=== PATIENT | male | born 1930 | race Two or more races ===

== ENCOUNTER → 2016-11-24 | Outpatient (CLI) | payer MEDICARE, BC ==
[2016-11-24 08:51] LABS: Basophils # (A) 0.1 k/uL (0-0.2); Basophils % (A) 1 %; CH 31.1; CHCM 32.1; Eosinophils # (A) 0.2 k/uL (0-0.7); Eosinophils % (A) 3 %; HCT 45.8 % (39.0-53.0); HGB 14.7 gm/dL (13.0-17.5); Luc # (Auto) 0.18; Luc % (Auto) 2; Lymphocytes # (A) 2.2 k/uL (1.0-4.8); Lymphocytes % (A) 29 %; MCH 31.3 pg (25.0-35.0); MCHC 32.2 g/dL (31.0-37.0); MCV 97.4 fL (80.0-100.0); Mean Platelet Volume 9.9; Monocytes # (A) 0.6 k/uL (0-1.0); Monocytes % (A) 8 %; Neutrophils # (A) 4.2 k/uL (1.3-7.7); Neutrophils % (A) 57 %; RBC 4.71 m/uL (4.30-5.90); RDW 14.1 % (11.5-15.5); WBC 7.4 k/uL (3.8-10.6); WBC (Perox) 7.59
[2016-11-24 09:42] LABS: Erythrocyte Sedimentation Rate 7 mm/hr (0-15)
[2016-11-24 10:18] LABS: ALT 30 U/L (21-72); AST 23 U/L (17-59); Alkaline Phosphatase 83 U/L (38-126); Anion Gap 9 mmol/L; Blood Urea Nitrogen 27 mg/dL (9-20); C Reactive Protein <5.0 mg/L (<10.0); Calcium 9.4 mg/dL (8.4-10.2); Carbon Dioxide 27 mmol/L (22-30); Chloride 106 mmol/L (98-107); Cholesterol 192 mg/dL (<200); Creatine Kinase 70 U/L (55-170); Glucose 92 mg/dL (74-99); HDL Cholesterol 54 mg/dL (40-60); Magnesium 1.7 mg/dL (1.6-2.3); Non-African American GFR(MDRD) 48 (>60 ml/min/1.73 sqM); Phosphorous 3.4 mg/dL (2.5-4.5); Potassium 5.4 mmol/L (3.5-5.1); Sodium 142 mmol/L (137-145); Total Bilirubin 0.6 mg/dL (0.2-1.3); Total Protein 6.8 g/dL (6.3-8.2); Triglycerides 70 mg/dL (<150)
== END | disposition home or self-care (01) ==
LOC: LABWHC1 08:02
PROVIDERS: ATTEND Internal Medicine
DX: E87.8 Other disorders of electrolyte and fluid balance, not elsewhere classified (principal); I10 Essential (primary) hypertension; E05.90 Thyrotoxicosis, unspecified without thyrotoxic crisis or storm; E55.9 Vitamin D deficiency, unspecified
CPT/HCPCS: 36415; 80053; 80061; 82306; 82550; 83735; 84100; 84439; 84443; 85025; 85652; 86140

== ENCOUNTER → 2016-12-05 | Outpatient (CLI) | payer MEDICARE, BC | END | disposition home or self-care (01) | LOC: LABWHC1 16:19 | PROVIDERS: ATTEND Internal Medicine | DX: E87.5 Hyperkalemia (principal) | CPT/HCPCS: 36415; 84132 ==

== ENCOUNTER → 2018-04-11 | Outpatient (CLI) | payer MEDICARE, BC ==
[2018-04-11 07:52] LABS: Basophils # (A) 0.1 k/uL (0-0.2); Basophils % (A) 1 %; Eosinophils # (A) 0.2 k/uL (0-0.7); Eosinophils % (A) 3 %; HCT 49.8 % (39.0-53.0); HGB 16.3 gm/dL (13.0-17.5); Lymphocytes % (A) 36 %; MCH 32.7 pg (25.0-35.0); MCHC 32.6 g/dL (31.0-37.0); MCV 100.1 fL (80.0-100.0); Mean Platelet Volume 9.4; Monocytes # (A) 0.4 k/uL (0-1.0); Monocytes % (A) 7 %; Neutrophils # (A) 2.8 k/uL (1.3-7.7); Neutrophils % (A) 50 %; Platelet Count 106 k/uL (150-450); RBC 4.98 m/uL (4.30-5.90); RDW 12.7 % (11.5-15.5); WBC 5.6 k/uL (3.8-10.6)
[2018-04-11 08:52] LABS: ALT 30 U/L (21-72); AST 30 U/L (17-59); Albumin 4.2 g/dL (3.5-5.0); Alkaline Phosphatase 69 U/L (38-126); Anion Gap 12 mmol/L; Blood Urea Nitrogen 23 mg/dL (9-20); C Reactive Protein <5.0 mg/L (<10.0); Calcium 9.3 mg/dL (8.4-10.2); Carbon Dioxide 28 mmol/L (22-30); Chloride 100 mmol/L (98-107); Cholesterol 217 mg/dL (<200); Creatine Kinase 111 U/L (55-170); Glucose 91 mg/dL (74-99); HDL Cholesterol 74 mg/dL (40-60); LDL Cholesterol,Calculated 129 mg/dL (0-99); Magnesium 1.6 mg/dL (1.6-2.3); Phosphorus 3.1 mg/dL (2.5-4.5); Sodium 140 mmol/L (137-145); Total Bilirubin 0.8 mg/dL (0.2-1.3); Total Protein 7.2 g/dL (6.3-8.2); Triglycerides 70 mg/dL (<150)
[2018-04-11 08:55] LABS: Potassium 4.6 mmol/L (3.5-5.1)
[2018-04-11 09:25] LABS: Erythrocyte Sedimentation Rate 2 mm/hr (0-15)
[2018-04-11 18:10] LABS: Parathyroid Hormone Intact 71.2 pg/mL (14.0-72.0)
[2018-04-11 18:12] LABS: Anti-DNA, DS unit <1.0 IU/mL; DNA Double-Stranded NEGATIVE (NEGATIVE)
[2018-04-12 13:40] LABS: Smooth Muscle Antibody 9 UNITS (<20)
[2018-04-12 13:54] LABS: C-ANCA <1:20 Titer (<1:20); P-ANCA <1:20 Titer (<1:20)
[2018-04-12 19:55] LABS: Folate, Serum 13.9 ng/mL
== END | disposition home or self-care (01) ==
LOC: LABWHC1 07:26
PROVIDERS: ATTEND Internal Medicine
DX: E21.3 Hyperparathyroidism, unspecified (principal); E87.8 Other disorders of electrolyte and fluid balance, not elsewhere classified; D64.9 Anemia, unspecified; I82.409 Acute embolism and thrombosis of unspecified deep veins of unspecified lower extremity; M35.9 Systemic involvement of connective tissue, unspecified
CPT/HCPCS: 36415; 80053; 80061; 82306; 82550; 82607; 82746; 83516; 83735; 83970; 84100; 85025; 85379; 85652; 86038; 86140; 86225; 86255

== ENCOUNTER → 2018-04-17 | Outpatient (CLI) | payer MEDICARE, BC ==
--- NOTE | 2018-04-17 18:28 | US ---
EXAMINATION TYPE: US venous doppler duplex LE BI DATE OF EXAM: 04/17/2018 6:07 PM COMPARISON: NONE CLINICAL HISTORY: M79.661 Rt low leg pain,R06.02 Shortness of breath. Right leg pain SIDE PERFORMED: Right TECHNIQUE: The lower extremity deep venous system is examined utilizing real time linear array sonog lucio with graded compression, doppler sonography and color-flow sonography. VESSELS IMAGED: External Iliac Vein (EIV) Common Femoral Vein Deep Femoral Vein Greater Saphenous Vein * Femoral Vein Popliteal Vein Small Saphenous Vein * Proximal Calf Veins (* superficial vessels) Right Leg: Negative for DVT No evidence of DVT right leg. IMPRESSION: 1. Right lower extremity ultrasound negative for deep venous thrombosis
--- NOTE | 2018-04-18 08:15 | CT ---
EXAMINATION TYPE: CT chest wo con DATE OF EXAM: 04/17/2018 COMPARISON: Chest radiograph dated 08/07/2016 HISTORY: Shortness of breath, abnormal cxr at an outside institution. CT DLP: 127.7 mGycm. Automated Exposure Control for Dose Reduction was Utilized. TECHNIQUE: CT scan of the thorax is performed without IV contrast. FINDINGS: LUNGS: Subpleural reticulation is seen throughout the lungs more pronounced on the right than the lef t. Very mild lower lobe bronchiectasis is noted. Biapical pleural parenchymal scarring is mild. The l ungs are grossly clear, there is no concerning parenchymal mass or nodule identified. There is no p leural effusion or pneumothorax seen. The tracheobronchial tree is patent. MEDIASTINUM: Ascending thoracic aorta is enlarged measuring 4.3 cm on coronal series 6 image 26. Desc ending thoracic aorta is tortuous but within normal limits measuring 3.0 cm. Moderate atherosclerosis is seen of the thoracic aorta. Main pulmonary artery is also within normal limits. Severe three-vess el coronary artery calcifications are seen. Prominent 1.2 cm short axis precarinal lymph node is note d. Lack of IV contrast is noted to limit evaluation for mediastinal and especially hilar adenopathy. No axillary adenopathy is seen. No cardiomegaly or pericardial effusion is seen. OTHER: There is minimal bilateral overall symmetric retroareolar gynecomastia moderate multilevel deg enerative changes of the thoracic spine are noted. IMPRESSION: 1. Ascending thoracic aortic aneurysm (4.3 cm). Surveillance is recommended. 2. Subpleural reticulation throughout the lungs and may represent atelectasis, can be seen physiologi [place] in aging independent of smoking, or may represent early fibrosis. No focal consolidation or pul monary mass. 3. Solitary prominent mediastinal lymph node, low suspicion for malignancy. This may be reactive.
== END | disposition home or self-care (01) ==
LOC: RADUSMAIN 17:28
PROVIDERS: ATTEND Internal Medicine
DX: I71.2 Thoracic aortic aneurysm, without rupture (principal); M79.604 Pain in right leg; Z88.0 Allergy status to penicillin
CPT/HCPCS: 71250; 93970

== ENCOUNTER 2018-10-19 10:45 | Emergency (ER) | payer MEDICARE, BC ==
[2018-10-19 10:49] VITALS: RESP 18
[2018-10-19] MEDS ORDERED: ONDANSETRON 4 MG/2 ML VIAL IVP STA (11:08)
[2018-10-19] MEDS ORDERED: SODIUM CHLORIDE 0.9% 1,000 ML IV STA (11:08)
--- NOTE | 2018-10-19 11:20 | ED ---
Nausea/Vomiting/Diarrhea HPI - General Chief complaint: Nausea/Vomiting/Diarrhea Stated complaint: diarrhea Time Seen by Provider: 10/19/18 11:08 Source: patient, RN notes reviewed, old records reviewed Mode of arrival: ambulatory Limitations: no limitations - History of Present Illness Initial comments: This is a 80-year-old male the ER for evasive nausea vomiting diarrhea. No recent travel history no known sick contacts, no family members with similar complaints. No fevers. Patient states his symptoms are much improved currently he was having some difficulty with urination secondary dehydration. Otherwise patient denies any significant complaints of fever, no prior surgical history MD complaint: nausea, vomiting -: days(s) (2) Description of Vomiting: food contents, watery Description of Diarrhea: water Associated Abdominal Pain: Yes Location: diffuse Severity: mild Severity scale (1-10): 1 Quality: cramping, aching Consistency: constant Improves with: none Worsens with: eating, movement Context: other (unknown) Associated Symptoms: nausea/vomiting, weakness - Related Data Home Medications Medication Instructions Recorded Confirmed Metoprolol Tartrate [Lopressor] 12.5 mg PO Q48H 10/19/18 10/19/18 Previous Rx's Medication Instructions Recorded Flecainide [Tambocor] 50 mg PO Q12HR #60 tab 07/26/16 Allergies Allergy/AdvReac Type Severity Reaction Status Date / Time Penicillins Allergy Rash/Hives Verified 10/19/18 11:01 apixaban [From Eliquis] AdvReac WEAKNESS Verified 10/19/18 11:01 Review of Systems ROS Statement: Those systems with pertinent positive or pertinent negative responses have been documented in the HPI. ROS Other: All systems not noted in ROS Statement are negative. Past Medical History Past Medical History: Atrial Fibrillation, Hypertension, Renal Disease Additional Past Medical History / Comment(s): MALARIA WHEN IN [place] History of Any Multi-Drug Resistant Organisms: None Reported Past Surgical History: Hernia Repair Additional Past Surgical History / Comment(s): lt hip surgery,ing hernia repair , rt arm sx Additional Past Anesthesia/Blood Transfusion Reaction / Comment(s): no past blood transfusion Past Psychological History: No Psychological Hx Reported Smoking Status: Never smoker Past Alcohol Use History: None Reported Past Drug Use History: None Reported - Past Family History Father Family Medical History: Myocardial Infarction ([place]) Mother Family Medical History: No Reported History General Exam Limitations: no limitations General appearance: alert, in no apparent distress Head exam: Present: atraumatic, normocephalic, normal inspection Eye exam: Present: normal appearance, PERRL, EOMI. Absent: scleral icterus, conjunctival injection, periorbital swelling ENT exam: Present: normal exam, mucous membranes moist Neck exam: Present: normal inspection. Absent: tenderness, meningismus, lymphadenopathy Respiratory exam: Present: normal lung sounds bilaterally. Absent: respiratory distress, wheezes, rales, rhonchi, stridor Cardiovascular Exam: Present: regular rate, normal rhythm, normal heart sounds. Absent: systolic murmur, diastolic murmur, rubs, gallop, clicks GI/Abdominal exam: Present: soft, normal bowel sounds. Absent: distended, tenderness, guarding, rebound, rigid Extremities exam: Present: normal inspection, full ROM, normal capillary refill. Absent: tenderness, pedal edema, joint swelling, calf tenderness Back exam: Present: normal inspection Neurological exam: Present: alert, oriented X3, CN II-XII intact Psychiatric exam: Present: normal affect, normal mood Skin exam: Present: warm, dry, intact, normal color. Absent: rash Course Vital Signs 10/19/18 10:47 Temperature 97.8 F Pulse Rate 91 Respiratory 18 Rate Blood Pressure 147/97 O2 Sat by Pulse 99 Oximetry Medical Decision Making - Medical Decision Making 88 male the ER for evasive nausea vomiting diarrhea, patient without significant symptoms nausea vomiting or diarrhea here in the ER, x-ray negative for any sort of obstruction no abdominal pain. Mild dehydration, patient given adequate fluid here in the ER will be discharged home - Lab Data Result diagrams: 10/19/18 11:37 10/19/18 11:37 Lab Results 10/19/18 10/19/18 10/19/18 Range/Units 11:37 11:37 11:37 WBC 10.3 (3.8-10.6) k/uL RBC 5.17 (4.30-5.90) m/uL Hgb 16.6 (13.0-17.5) gm/dL Hct 51.3 (39.0-53.0) % MCV 99.3 (80.0-100.0) fL MCH 32.0 (25.0-35.0) pg MCHC 32.2 (31.0-37.0) g/dL RDW 12.6 (11.5-15.5) % Plt Count 94 L (150-450) k/uL Neutrophils % 71 % Lymphocytes % 19 % Monocytes % 7 % Eosinophils % 1 % Basophils % 0 % Neutrophils # 7.3 (1.3-7.7) k/uL Lymphocytes # 1.9 (1.0-4.8) k/uL Monocytes # 0.7 (0-1.0) k/uL Eosinophils # 0.1 (0-0.7) k/uL Basophils # 0.0 (0-0.2) k/uL Manual Slide Review Performed RBC Morphology Normal Sodium 138 (137-145) mmol/L Potassium 4.8 (3.5-5.1) mmol/L Chloride 107 (98-107) mmol/L Carbon Dioxide 20 L (22-30) mmol/L Anion Gap 11 mmol/L BUN 18 (9-20) mg/dL Creatinine 1.43 H (0.66-1.25) mg/dL Est GFR (CKD-EPI)AfAm 51 (>60 ml/min/1.73 sqM) Est GFR (CKD-EPI)NonAf 44 (>60 ml/min/1.73 sqM) Glucose 95 (74-99) mg/dL Calcium 9.4 (8.4-10.2) mg/dL Phosphorus 3.3 (2.5-4.5) mg/dL Magnesium 1.7 (1.6-2.3) mg/dL Total Bilirubin 1.2 (0.2-1.3) mg/dL AST 55 (17-59) U/L ALT 10 L (21-72) U/L Alkaline Phosphatase 80 (38-126) U/L Total Creatine Kinase 252 H (55-170) U/L CK-MB (CK-2) 2.6 H (0.0-2.4) ng/mL CK-MB (CK-2) Rel Index 1.0 Troponin I <0.012 (0.000-0.034) ng/mL Total Protein 7.8 (6.3-8.2) g/dL Albumin 4.1 (3.5-5.0) g/dL - EKG Data -: EKG Interpreted by Me (EKG shows sinus rhythm rate of 76, KS 186, QRS 96, QTc 438) - Radiology Data Radiology results: report reviewed (X-ray abdominal series and chest shows mild fecal retention negative for significant acute disease), image reviewed Disposition Clinical Impression: Gastroenteritis, Dehydration Disposition: HOME SELF-CARE Condition: Good Instructions: Acute Nausea and Vomiting (ED), Acute Diarrhea (ED) Is patient prescribed a controlled substance at d/c from ED?: No Referrals: Leon Scott MD [Primary Care Provider] - 1-2 days
[2018-10-19 12:15] LABS: Basophils % (A) 0 %; Eosinophils # (A) 0.1 k/uL (0-0.7); Eosinophils % (A) 1 %; HCT 51.3 % (39.0-53.0); HGB 16.6 gm/dL (13.0-17.5); Lymphocytes # (A) 1.9 k/uL (1.0-4.8); Lymphocytes % (A) 19 %; MCHC 32.2 g/dL (31.0-37.0); MCV 99.3 fL (80.0-100.0); Mean Platelet Volume 9.8; Monocytes # (A) 0.7 k/uL (0-1.0); Monocytes % (A) 7 %; Neutrophils # (A) 7.3 k/uL (1.3-7.7); Neutrophils % (A) 71 %; RBC 5.17 m/uL (4.30-5.90); RDW 12.6 % (11.5-15.5); WBC 10.3 k/uL (3.8-10.6)
[2018-10-19 12:17] LABS: Creatine Kinase 252 U/L (55-170)
[2018-10-19 12:27] LABS: Albumin 4.1 g/dL (3.5-5.0); Calcium 9.4 mg/dL (8.4-10.2); Magnesium 1.7 mg/dL (1.6-2.3); Phosphorus 3.3 mg/dL (2.5-4.5); Total Bilirubin 1.2 mg/dL (0.2-1.3); Total Protein 7.8 g/dL (6.3-8.2)
[2018-10-19 12:30] LABS: Potassium 4.8 mmol/L (3.5-5.1)
[2018-10-19 12:31] LABS: Creatine Kinase MB 2.6 ng/mL (0.0-2.4); Platelet Count 94 k/uL (150-450); Troponin I <0.012 ng/mL (0.000-0.034)
--- NOTE | 2018-10-19 12:41 | XR ---
EXAMINATION TYPE: XR abdomen acute w cxr DATE OF EXAM: 10/19/2018 COMPARISON: None HISTORY: Abdominal cramping TECHNIQUE: Acute abdominal series performed with a frontal chest upright and supine views of the abdo men. FINDINGS: Nonspecific bowel gas is present. Moderate fecal debris is within the colon to the level th e rectum. Psoas margins are normal. Organomegaly is not present. No free air is evident. No suspicious differential air-fluid levels are present. Organomegaly is not present. Scoliosis is within the thoracolumbar spine. 2 surgical screws are within the left hip. No free air is under the diaphragm. Heart size is normal. Lung [place] are clear. IMPRESSION: 1. Moderate fecal retention. 2. Acute abdominal series is otherwise unremarkable.
[2018-10-19] MEDS ORDERED: GLYCERIN ADULT SUPPOSITORY 1 EACH RECTAL STA (13:01)
[2018-10-19] MEDS ORDERED: DICYCLOMINE 10 MG/ML 2 ML AMP IM STA (13:01)
[2018-10-19] MEDS ORDERED: SENNOSIDES-DOCUSATE SODIUM 1 EACH TAB PO STA (13:01)
[2018-10-19 14:13] VITALS: BP 136/86; PULSE 86; TEMP 97.3
[2018-10-19] MEDS ORDERED: DICYCLOMINE 10 MG CAP PO STA (14:17)
== END 2018-10-19 14:29 | disposition home or self-care (01) ==
LOC: EC 10:45
DX: K52.9 Noninfective gastroenteritis and colitis, unspecified (principal); E86.0 Dehydration; I48.91 Unspecified atrial fibrillation; I10 Essential (primary) hypertension; Z79.899 Other long term (current) drug therapy; Z88.0 Allergy status to penicillin; Z88.8 Allergy status to other drugs, medicaments and biological substances; Z53.8 Procedure and treatment not carried out for other reasons; Z53.29 Procedure and treatment not carried out because of patient's decision for other reasons
CPT/HCPCS: 36415; 74022; 80053; 82550; 82553; 83735; 84100; 84484; 85025; 93005; 96360; 96361; 99284

== ENCOUNTER 2018-10-21 19:51 | Inpatient (IN) | payer MEDICARE, BC ==
[2018-10-21] MEDS ORDERED: ACETAMINOPHEN TAB 325 MG TAB PO STA (20:36)
--- NOTE | 2018-10-21 20:43 | ED ---
General Adult HPI - General Source: patient, family, EMS, RN notes reviewed Mode of arrival: EMS Limitations: no limitations <Stewart Scott - Last Filed: 10/21/18 20:57> <Parmjit Coyne - Last Filed: 10/21/18 23:13> - General Chief complaint: Back Pain/Injury Stated complaint: weakness Time Seen by Provider: 10/21/18 20:09 - History of Present Illness Initial comments: Patient is a pleasant 88-year-old male presenting to the emergency department of fever. Patient was in the emergency department recently. Patient had constipation at that time followed by several episodes of diarrhea. Following that patient did have a large bowel movement that was somewhat normal and has been feeling well for the past couple of days. Today patient has felt fatigued and achy. Patient was found to have fever. Patient did have some discomfort in the sacral region externally that has resolved when he got up to walk. Patient has no discomfort at all at this time. No rash noted. No chest pain or dyspnea. No cough. No upper a story symptoms. No abdominal pain. No dysuria. (Stewart Scott) - Related Data Home Medications Medication Instructions Recorded Confirmed Metoprolol Tartrate [Lopressor] 12.5 mg PO Q48H 10/19/18 10/21/18 Previous Rx's Medication Instructions Recorded Flecainide [Tambocor] 50 mg PO Q12HR #60 tab 07/26/16 Polyethylene Glycol 3350 [Miralax] 17 gm PO DAILY #14 packet 10/19/18 Allergies Allergy/AdvReac Type Severity Reaction Status Date / Time gentamicin Allergy Unknown Verified 10/21/18 20:10 Penicillins Allergy Rash/Hives Verified 10/21/18 20:10 apixaban [From Eliquis] AdvReac WEAKNESS Verified 10/21/18 20:10 sertraline [From Zoloft] AdvReac Hallucinati Verified 10/21/18 20:10 ons Review of Systems ROS Other: All systems not noted in ROS Statement are negative. Constitutional: Reports: fever, chills Eyes: Denies: eye pain ENT: Denies: ear pain Respiratory: Denies: cough, dyspnea Cardiovascular: Denies: chest pain Endocrine: Denies: fatigue Gastrointestinal: Denies: abdominal pain Genitourinary: Denies: urgency, dysuria, frequency Musculoskeletal: Reports: as per HPI Skin: Denies: rash <Stewart Scott - Last Filed: 10/21/18 20:57> ROS Other: All systems not noted in ROS Statement are negative. <Parmjit Coyne Anita - Last Filed: 10/21/18 23:13> ROS Statement: Those systems with pertinent positive or pertinent negative responses have been documented in the HPI. Past Medical History Past Medical History: Atrial Fibrillation, Hypertension, Renal Disease Additional Past Medical History / Comment(s): MALARIA WHEN IN [place] History of Any Multi-Drug Resistant Organisms: None Reported Past Surgical History: Hernia Repair Additional Past Surgical History / Comment(s): lt hip surgery,ing hernia repair , left arm sx Additional Past Anesthesia/Blood Transfusion Reaction / Comment(s): no past blood transfusion Past Psychological History: No Psychological Hx Reported Smoking Status: Never smoker Past Alcohol Use History: None Reported Past Drug Use History: None Reported - Past Family History Father Family Medical History: Myocardial Infarction ([place]) Mother Family Medical History: No Reported History <Stewart Scott - Last Filed: 10/21/18 20:57> General Exam Limitations: no limitations General appearance: alert, in no apparent distress Head exam: Present: atraumatic Eye exam: Present: normal appearance, PERRL ENT exam: Present: normal oropharynx Neck exam: Present: normal inspection. Absent: tenderness, meningismus Respiratory exam: Present: normal lung sounds bilaterally Cardiovascular Exam: Present: regular rate, normal rhythm GI/Abdominal exam: Present: soft. Absent: tenderness Extremities exam: Present: normal inspection Back exam: Present: normal inspection, other (Specifically no tenderness or rash or abscess or abnormality in the patient's area of previous discomfort at the sacrum.). Absent: tenderness, rash noted Neurological exam: Present: alert Psychiatric exam: Present: normal affect, normal mood Skin exam: Present: normal color. Absent: rash <Stewart Scott - Last Filed: 10/21/18 20:57> Vital Signs 10/21/18 10/21/18 10/21/18 19:56 19:57 20:10 Temperature 100.4 F H Pulse Rate 97 79 Respiratory 12 Rate Blood Pressure 154/91 154/91 140/73 O2 Sat by Pulse 97 92 L Oximetry 10/21/18 10/21/18 10/21/18 20:20 20:40 20:50 Temperature Pulse Rate 78 74 75 Respiratory 20 24 20 Rate Blood Pressure 108/64 108/58 103/59 O2 Sat by Pulse Oximetry 10/21/18 10/21/18 10/21/18 21:20 21:30 21:40 Temperature Pulse Rate 78 75 74 Respiratory 18 20 22 Rate Blood Pressure 109/76 109/76 103/60 O2 Sat by Pulse 93 L 95 95 Oximetry 10/21/18 10/21/18 21:50 22:10 Temperature Pulse Rate 74 73 Respiratory 20 15 Rate Blood Pressure 99/58 95/58 O2 Sat by Pulse 95 94 L Oximetry EKG Findings - EKG Comments: EKG Findings:: Normal sinus rhythm 76. [place] 208, for screening AV block. QRS 94. QT 396. QTc 445. Normal axis. RSR V1. T-wave inversion septally. No acute ST change. <Stewart Scott - Last Filed: 10/21/18 20:57> Medical Decision Making - Lab Data Result diagrams: 10/21/18 20:05 <Stewart Scott - Last Filed: 10/21/18 20:57> - Lab Data Result diagrams: 10/21/18 20:05 10/21/18 20:05 <Parmjit Coyne - Last Filed: 10/21/18 23:13> - Medical Decision Making 88-year-old male presenting with sacral pain and fever. Patient's care was signed out at shift change awaiting laboratory studies and imaging. Laboratory studies obtained, patient is elevated white blood cell count 11.9, lactic acid of 3.3. Electrolytes within normal limits. Urinalysis does show 19 white cells. Both blood culture and urine culture are pending. CT is performed which shows colitis in the rectum as well as a nonobstructing left inguinal hernia. Patient's symptoms likely related to colitis. He was started on Levaquin for urine culture results. He will be admitted for IV antibiotics, and IV fluids. Case is discussed with admitting physician Dr. Scott, he will accept admission. Gastroenterology placed on consult. (Parmjit Coyne) - Lab Data Lab Results 10/21/18 10/21/18 10/21/18 Range/Units 20:05 20:05 20:05 WBC 11.9 H (3.8-10.6) k/uL RBC 4.80 (4.30-5.90) m/uL Hgb 15.0 (13.0-17.5) gm/dL Hct 47.5 (39.0-53.0) % MCV 99.0 (80.0-100.0) fL MCH 31.4 (25.0-35.0) pg MCHC 31.7 (31.0-37.0) g/dL RDW 12.6 (11.5-15.5) % Plt Count 110 L (150-450) k/uL Neutrophils % 83 % Lymphocytes % 10 % Monocytes % 5 % Eosinophils % 1 % Basophils % 0 % Neutrophils # 9.9 H (1.3-7.7) k/uL Lymphocytes # 1.2 (1.0-4.8) k/uL Monocytes # 0.6 (0-1.0) k/uL Eosinophils # 0.1 (0-0.7) k/uL Basophils # 0.0 (0-0.2) k/uL PT (9.0-12.0) sec INR (<1.2) APTT (22.0-30.0) sec Sodium 138 (137-145) mmol/L Potassium 4.6 (3.5-5.1) mmol/L Chloride 102 (98-107) mmol/L Carbon Dioxide 24 (22-30) mmol/L Anion Gap 12 mmol/L BUN 20 (9-20) mg/dL Creatinine 1.28 H (0.66-1.25) mg/dL Est GFR (CKD-EPI)AfAm 57 (>60 ml/min/1.73 sqM) Est GFR (CKD-EPI)NonAf 50 (>60 ml/min/1.73 sqM) Glucose 99 (74-99) mg/dL Plasma Lactic Acid Bravo (0.7-2.0) mmol/L Calcium 8.6 (8.4-10.2) mg/dL Total Bilirubin 0.6 (0.2-1.3) mg/dL AST 35 (17-59) U/L ALT 23 (21-72) U/L Alkaline Phosphatase 67 (38-126) U/L Total Creatine Kinase 341 H (55-170) U/L CK-MB (CK-2) 3.1 H (0.0-2.4) ng/mL CK-MB (CK-2) Rel Index 0.9 Troponin I <0.012 (0.000-0.034) ng/mL Total Protein 7.0 (6.3-8.2) g/dL Albumin 3.9 (3.5-5.0) g/dL Urine Color Urine Appearance (Clear) Urine pH (5.0-8.0) Ur Specific [place] (1.001-1.035) Urine Protein (Negative) Urine Glucose (UA) (Negative) Urine Ketones (Negative) Urine Blood (Negative) Urine Nitrite (Negative) Urine Bilirubin (Negative) Urine Urobilinogen (<2.0) mg/dL Ur Leukocyte Esterase (Negative) Urine RBC (0-5) /hpf Urine WBC (0-5) /hpf Urine Mucus (None) /hpf Influenza Type A RNA (Not Detectd) Influenza Type B (PCR) (Not Detectd) 10/21/18 10/21/18 10/21/18 Range/Units 20:05 20:05 20:50 WBC (3.8-10.6) k/uL RBC (4.30-5.90) m/uL Hgb (13.0-17.5) gm/dL Hct (39.0-53.0) % MCV (80.0-100.0) fL MCH (25.0-35.0) pg MCHC (31.0-37.0) g/dL RDW (11.5-15.5) % Plt Count (150-450) k/uL Neutrophils % % Lymphocytes % % Monocytes % % Eosinophils % % Basophils % % Neutrophils # (1.3-7.7) k/uL Lymphocytes # (1.0-4.8) k/uL Monocytes # (0-1.0) k/uL Eosinophils # (0-0.7) k/uL Basophils # (0-0.2) k/uL PT 10.2 (9.0-12.0) sec INR 0.9 (<1.2) APTT 23.4 (22.0-30.0) sec Sodium (137-145) mmol/L Potassium (3.5-5.1) mmol/L Chloride (98-107) mmol/L Carbon Dioxide (22-30) mmol/L Anion Gap mmol/L BUN (9-20) mg/dL Creatinine (0.66-1.25) mg/dL Est GFR (CKD-EPI)AfAm (>60 ml/min/1.73 sqM) Est GFR (CKD-EPI)NonAf (>60 ml/min/1.73 sqM) Glucose (74-99) mg/dL Plasma Lactic Acid Bravo 3.3 H* (0.7-2.0) mmol/L Calcium (8.4-10.2) mg/dL Total Bilirubin (0.2-1.3) mg/dL AST (17-59) U/L ALT (21-72) U/L Alkaline Phosphatase (38-126) U/L Total Creatine Kinase (55-170) U/L CK-MB (CK-2) (0.0-2.4) ng/mL CK-MB (CK-2) Rel Index Troponin I (0.000-0.034) ng/mL Total Protein (6.3-8.2) g/dL Albumin (3.5-5.0) g/dL Urine Color Urine Appearance (Clear) Urine pH (5.0-8.0) Ur Specific [place] (1.001-1.035) Urine Protein (Negative) Urine Glucose (UA) (Negative) Urine Ketones (Negative) Urine Blood (Negative) Urine Nitrite (Negative) Urine Bilirubin (Negative) Urine Urobilinogen (<2.0) mg/dL Ur Leukocyte Esterase (Negative) Urine RBC (0-5) /hpf Urine WBC (0-5) /hpf Urine Mucus (None) /hpf Influenza Type A RNA Not Detected (Not Detectd) Influenza Type B (PCR) Not Detected (Not Detectd) 10/21/18 Range/Units 21:08 WBC (3.8-10.6) k/uL RBC (4.30-5.90) m/uL Hgb (13.0-17.5) gm/dL Hct (39.0-53.0) % MCV (80.0-100.0) fL MCH (25.0-35.0) pg MCHC (31.0-37.0) g/dL RDW (11.5-15.5) % Plt Count (150-450) k/uL Neutrophils % % Lymphocytes % % Monocytes % % Eosinophils % % Basophils % % Neutrophils # (1.3-7.7) k/uL Lymphocytes # (1.0-4.8) k/uL Monocytes # (0-1.0) k/uL Eosinophils # (0-0.7) k/uL Basophils # (0-0.2) k/uL PT (9.0-12.0) sec INR (<1.2) APTT (22.0-30.0) sec Sodium (137-145) mmol/L Potassium (3.5-5.1) mmol/L Chloride (98-107) mmol/L Carbon Dioxide (22-30) mmol/L Anion Gap mmol/L BUN (9-20) mg/dL Creatinine (0.66-1.25) mg/dL Est GFR (CKD-EPI)AfAm (>60 ml/min/1.73 sqM) Est GFR (CKD-EPI)NonAf (>60 ml/min/1.73 sqM) Glucose (74-99) mg/dL Plasma Lactic Acid Bravo (0.7-2.0) mmol/L Calcium (8.4-10.2) mg/dL Total Bilirubin (0.2-1.3) mg/dL AST (17-59) U/L ALT (21-72) U/L Alkaline Phosphatase (38-126) U/L Total Creatine Kinase (55-170) U/L CK-MB (CK-2) (0.0-2.4) ng/mL CK-MB (CK-2) Rel Index Troponin I (0.000-0.034) ng/mL Total Protein (6.3-8.2) g/dL Albumin (3.5-5.0) g/dL Urine Color Yellow Urine Appearance Clear (Clear) Urine pH 5.5 (5.0-8.0) Ur Specific [place] 1.011 (1.001-1.035) Urine Protein Negative (Negative) Urine Glucose (UA) Negative (Negative) Urine Ketones Negative (Negative) Urine Blood Negative (Negative) Urine Nitrite Negative (Negative) Urine Bilirubin Negative (Negative) Urine Urobilinogen <2.0 (<2.0) mg/dL Ur Leukocyte Esterase Small H (Negative) Urine RBC 1 (0-5) /hpf Urine WBC 19 H (0-5) /hpf Urine Mucus Rare H (None) /hpf Influenza Type A RNA (Not Detectd) Influenza Type B (PCR) (Not Detectd) Disposition <Stewart Scott - Last Filed: 10/21/18 20:57> Is patient prescribed a controlled substance at d/c from ED?: No Decision to Admit Reason: Admit from EC Decision Date: 10/21/18 Decision Time: 23:13 <Parmjit Coyne - Last Filed: 10/21/18 23:13> Clinical Impression: Dehydration, Colitis Disposition: ADMITTED IP TO THIS HOSP Condition: Stable Referrals: Leon Scott MD [Primary Care Provider] - 1-2 days
[2018-10-21 20:46] LABS: Basophils % (A) 0 %; Eosinophils # (A) 0.1 k/uL (0-0.7); Eosinophils % (A) 1 %; HCT 47.5 % (39.0-53.0); Lymphocytes # (A) 1.2 k/uL (1.0-4.8); Lymphocytes % (A) 10 %; MCH 31.4 pg (25.0-35.0); MCHC 31.7 g/dL (31.0-37.0); Mean Platelet Volume 9.7; Monocytes # (A) 0.6 k/uL (0-1.0); Monocytes % (A) 5 %; Neutrophils # (A) 9.9 k/uL (1.3-7.7); Neutrophils % (A) 83 %; Platelet Count 110 k/uL (150-450); RDW 12.6 % (11.5-15.5); WBC 11.9 k/uL (3.8-10.6)
[2018-10-21 20:59] LABS: INR 0.9 (<1.2); Partial Thromboplastin Time 23.4 sec (22.0-30.0); Prothrombin Time 10.2 sec (9.0-12.0)
[2018-10-21 21:03] LABS: Albumin 3.9 g/dL (3.5-5.0); Calcium 8.6 mg/dL (8.4-10.2); Potassium 4.6 mmol/L (3.5-5.1); Total Bilirubin 0.6 mg/dL (0.2-1.3)
[2018-10-21 21:06] LABS: Creatine Kinase 341 U/L (55-170)
[2018-10-21] MEDS ORDERED: SODIUM CHLORIDE 0.9% 1,000 ML IV ONE (21:11)
[2018-10-21 21:18] LABS: Creatine Kinase MB 3.1 ng/mL (0.0-2.4); Troponin I <0.012 ng/mL (0.000-0.034)
--- NOTE | 2018-10-21 21:20 | XR ---
EXAMINATION TYPE: XR chest 2V DATE OF EXAM: 10/21/2018 COMPARISON: 08/07/2016 HISTORY: Fever TECHNIQUE: Frontal and lateral views of the chest are obtained. FINDINGS: There is no heart failure nor confluent pneumonic infiltrate. Thoracic aorta is atheromato us and tortuous. Costophrenic angles are clear. Bony thorax appears intact. IMPRESSION: No active cardiopulmonary disease. There is clearing of the pleural fluid and mild pulmo nary congestion compared to old exam.
[2018-10-21 21:32] LABS: Appearance,Urine Clear (Clear); Bilirubin,Urine Negative (Negative); Blood,Urine Negative (Negative); Color,Urine Yellow; Glucose,Urine (UA) Negative (Negative); Ketones,Urine Negative (Negative); Leukocyte Esterase,Urine Small (Negative); Mucus,Urine Rare /hpf; Nitrite,Urine Negative (Negative); PH, Urine 5.5 (5.0-8.0); Protein,Urine Negative (Negative); RBC,Urine 1 /hpf (0-5); Specific Gravity,Urine 1.011 (1.001-1.035); Urobilinogen,Urine <2.0 mg/dL (<2.0); WBC,Urine 19 /hpf (0-5)
[2018-10-21] MEDS ORDERED: LEVOFLOXACIN 500MG-D5W PMX 500 MG in DEXTROSE/WATER 1 100ML.BAG IVPB STA (21:58)
--- NOTE | 2018-10-21 22:43 | CT ---
EXAMINATION TYPE: CT abdomen pelvis w con DATE OF EXAM: 10/21/2018 COMPARISON: None HISTORY: Fever and weakness. CT DLP: 578.6 mGycm Automated exposure control for dose reduction was used. TECHNIQUE: Helical acquisition of images was performed from the lung bases through the pelvis. CONTRAST: Performed without Oral Contrast and with IV Contrast, patient injected with 80ml mL of Isovue 300. FINDINGS: There is subsegmental atelectasis at the lung bases. Heart is enlarged. There is no pericardial effus ion. Liver shows no focal defect. Gallbladder appears normal. Spleen appears normal. There is no panc reatic mass. There is no adrenal mass. There are small bilateral renal cortical cysts. There is no hydronephrosis. There is no retroperitoneal adenopathy. Abdominal aorta is atheromatous. Bladder distends smoothly. There is left side inguinal hernia and scrotal hernia. This contains descending colon and fat. I see no evidence of a bowel obstruction. There is a left hip nailing noted. There is no free fluid in the pelvis. There is mild wall thickening of the rectum. Lumbar vertebra have normal spacing. There is no compression fracture. Posterior elements are intact. Bony pelvis is intact. There is mild thoracolumbar dextroscoliosis. There is no evidence of mesenteric edema or adenopathy. There is no evidence of a bowel obstruction. IMPRESSION: THERE IS WALL THICKENING OF THE RECTUM THAT COULD RELATE TO FOCAL COLITIS. LEFT INGUINAL HERNIA WITHOUT EVIDENCE OF OBSTRUCTION OF THE DESCENDING COLON. PATCHY SUBSEGMENTAL ATELECTASIS AT THE LUNG BASES. CARDIOMEGALY.
[2018-10-21] MEDS ORDERED: ACETAMINOPHEN TAB 325 MG TAB PO PRN (23:08)
[2018-10-21] MEDS ORDERED: SODIUM CHLORIDE 0.9% 500 ML 500 ML IV ONE (23:08)
[2018-10-21] MEDS ORDERED: NALOXONE 0.4 MG/ML 1 ML VIAL IV PRN (23:08)
[2018-10-21] MEDS ORDERED: LEVOFLOXACIN 500MG-D5W PMX 500 MG in DEXTROSE/WATER 1 100ML.BAG IVPB SCH (23:15)
[2018-10-22] MEDS: SODIUM CHLORIDE 0.9% 1,000 ML IV SCH ×2 (07:06→18:34)
[2018-10-22] MEDS: metroNIDAZOLE-NS PMX 500 MG in SALINE 1 100ML.BAG IVPB SCH ×2 (10:17→18:33)
[2018-10-22] MEDS: FLECAINIDE 50 MG TAB PO SCH ×2 (10:17→20:04)
[2018-10-22 10:46] LABS: Albumin 3.1 g/dL (3.5-5.0); Calcium 8.8 mg/dL (8.4-10.2); Magnesium 1.6 mg/dL (1.6-2.3); Potassium 4.5 mmol/L (3.5-5.1); Total Bilirubin 0.8 mg/dL (0.2-1.3); Total Protein 6.1 g/dL (6.3-8.2)
[2018-10-22] MEDS ORDERED: methylPREDNISolone SOD SUCCI 125 MG/2 ML VIAL IV STA (14:53)
--- NOTE | 2018-10-22 15:33 | HP ---
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 DATA: FULL CODE. He is 5 foot 5 inches height. His weight 62.142 kg, BSA 1.68 m2, BMI 22.8 kg/m2. His allergy to GENTAMICIN, PENICILLIN, APIXABAN, SERTRALINE. He has no allergy to cephalosporin. CHIEF COMPLAINT: Patient presented to the emergency room with the underlying abdominal pain, as well as that he felt weak and feverish and chills. 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 After his visit, he went home and he was stable at the time and he had a large bowel movement and he felt comfortable. Yesterday. Monday, 10/21, he went exercise walking in the mall and with his return back, he had a shower, but after the shower, he felt shivering and this shivering did not stop. That was happening around 4:30 pm to 7 pm. Subsequently they called the ambulance, his and took him to the emergency room. In the emergency room and found that his blood pressure was low at the time of presentation and the blood pressure was her his temperature as well was 100.4. blood pressure started as level of 154/91 and subsequently gradually dropped to 108/58 and with instability, his oxygen saturation also went down from 97 to 92. And the patient with this finding and the abdominal pain and shivering underwent CT scan of the abdomen. The CT scan of the abdomen was indicating that he has underlying wall thickening in the rectum and could be focal colitis at the time. With the history of constipation and after that, large frequent bowel movement until he was cleaned up and could be that is irritation. However, the hypotension that occurred subsequently that could be another issue. Found also in the CT scan that he had the left inguinal hernia and without evidence of obstruction of the descending colon. Also, he had a patchy atelectasis in the lung bases with cardiomegaly. In the ER as well, we did a chest x-ray and the chest x-ray was indicating mild pulmonary congestion compared with the old exam. No active pulmonary disease. His EKG showed to be normal sinus rhythm with incomplete right bundle branch block and nonspecific ST wave abnormality with the abnormal EKG and the patient has been on flecainide by Dr. Augustin, the publishing editor, with a history of atrial fibrillation in the past and he has been sinus since he has been taken this medication. He had history of mild hypertension in the past, but he has currently hypotension. He, subsequently, as seen in the emergency room and the impression that presented to them was fever and patient had has a history mentioned above, history of constipation and followed by several diarrhea and large bowel movements. Patient felt fatigued and achy and the pain was in the sacral area and was burning sensation on the anal rectal area. However, he walked and he felt resolved. No chest pain and no cough and no abdominal pain at the time of presentation to the emergency room. Current rest of medication is metoprolol tartrate 12.5 mg p.o. every 48 hours. He is on flecainide, which is Tambocor which is flecainide 50 mg twice a day and he is on polyethylene glycol, MiraLAX, which has been stopped on the admission. He is allergic to GENTAMICIN, PENICILLIN, APIXABAN, and SERTRALINE. PAST MEDICAL HISTORY: Left hip surgery with screw and pins with fracture. The patient , he has 3 daughters. REVIEW OF THE SYSTEM: Essentially negative except constitutional he had a fever and chills. Denied any pain in the eye or the ear. Denied any respiratory symptoms, cough and dyspnea. Denied any cardiovascular symptoms, chest pain or anginal pain. Endocrine was negative, but he felt fatigued and tired and found that he has CPK, the muscle fraction was elevated, which has been subsequently after he was exercising, walking in the mall. Genitourinary, denied any urgency or dysuria or frequency and musculoskeletal, just history of exercising in the mall. Skin, no skin rash. GI, the feeling of pain in the sacral area and perianal area and burning feeling, probably could be related after he had the frequent large bowel movement. The past medical history, he had hernia repair. He had also left hip surgery and he had history of atrial fib, hypertension, and chronic kidney disease, mild; however, today is progressive. He has remote history of malaria and in [place], remote. No psychological history. Never smoked. No alcohol intake. No drug use. FAMILY HISTORY: Father, myocardial infarction. Mother, Raynaud's disease. PHYSICAL EXAMINATION: Patient was conscious, alert, oriented x3 at the time of the examination, his blood pressure is still low in the 93/54 with a mean 67 and subsequently 91/56. His pulse ox was in the 92-93. His pulse rate was 63-65. HEENT: The head was normocephalic, atraumatic. Pupil was reactive and equal. Conjunctivae was pink, sclerae was nonicteric and the oropharynx natural teeth and uvula midline and normal tongue here. Normal hearing and neck was supple. No lymphadenopathy. Trachea midline. No thyromegaly. Chest was clear to auscultation and percussion. No wheezes, no rhonchi. The heart, PMI in the fifth intercostal space and normal S1, S2. No gallop. The abdomen was soft with some epigastric discomfort and lower abdomen discomfort in the abdomen is positive bowel sounds and not tympanitic. EXTREMITIES: No edema, but decreased pulses on both dorsalis pedis and posterior tibial as well as on the femoral and popliteal pulses. The purplish discoloration of the foot and hand with exposure to the cold with the underlying Raynaud's disease. He had also an onychomycosis of the toenails with nail dystrophy bilateral. LABORATORY: On admission indicating lactic acidosis with the lactic acid was 3.3 and; however when we repeat again, it has improved to 0.8. He had his leukocytosis with the WBC is 11.9 and the hemoglobin was normal 15, hematocrit 47. Patient also had thrombocytopenia; however, he has no bleeding tendency with the platelet count 110. His neutrophil was 9.9, which is increased. He has a PT and INR within normal limit and he has chemistry profile on admission and that was indicating normal electrolyte with sodium 138, and carbon dioxide was 24. However, the creatinine is 1.28 and with the subsequent labs indicating that progression of the creatinine with the normal glucose. However, the repeat again his blood sugar was 68. The patient did not eat at that time. The underlying CK was 341 on admission with muscle fraction is 3.1, the CK-MB and that is considered mild post-exercise rhabdo. His troponin was normal less than 0.012 and the total protein 7, albumin 3.9, and his urinalysis was indicating that he had a small leukocyte esterase with white cells is 19, suspicious of pyuria was considered or urinary tract infection including prostatitis. Repeat lab this morning was indicating that the creatinine went up with the estimated glomerular filtration rate for non- for him when he admitted was 50 and now it is 48. We started him back again on the IV fluid, which was discontinued during the night. IMPRESSION: 1. Dehydration. 2. Acute kidney injury on the top of chronic with chronic kidney disease stage III. 3. Underlying mild elevation of creatine kinase considering mild rhabdo. Lactic acidosis could be associated with a 3.3 lactic acid. Peripheral vascular disease with pulses bilaterally decreased. 4. Thickening of the rectum by the CAT scan with the underlying focal colitis and possible proctitis with the symptoms of anal burning. 5. Thrombocytopenia with no active bleeding. 6. History of atrial fibrillation, currently sinus. 7. Incomplete right bundle branch block by the EKG. 8. Underlying left hip arthroplasty. 9. Currently, inguinal hernia by the CT scan; however, nonsymptomatic. PLAN: 1. We are repeating laboratory. 2. Hydration with IV gentle hydration with IV fluids 75 mL/hour normal saline. 3. Monitoring the renal function. 4. Consultation with Dr. Page/Gastroenterology/Dr. Saunders the new gastroenterology and I did discuss it with him personally that he will be seeing him today. The underlying thrombocytopenia and without any active bleeding and will be checking again the laboratory tomorrow and his PT and INR is normal and we will be ambulating him from day 1 with no need for DVT prophylaxis as he always active for ambulation. 5. We will be obtaining bilateral arterial duplex as RANDA, we do not do it in the hospital and we will get the ultrasound of the arterial side. 6. Tomorrow will check also his CPK for a solution of the mild rhabdo. 7. Patient was started in the ER on Levaquin with the history of proctitis and burning inflammation, will be changing the antibiotic to Rocephin as well as Rocephin, and Flagyl until seen by the Gastroenterology and we will wait for the results of the arterial duplex study of the lower extremity. Further treatment depends on the patient's condition. MMODL / IJN: [id number] /
[2018-10-22 18:09] LABS: Anti-DNA, DS unit <1.0 IU/mL; DNA Double-Stranded NEGATIVE (NEGATIVE)
[2018-10-22] MEDS ORDERED: LEVOFLOXACIN 250MG-D5W PMX 250 MG in DEXTROSE/WATER 1 50ML.BAG IVPB SCH (23:15)
[2018-10-23] MEDS: metroNIDAZOLE-NS PMX 500 MG in SALINE 1 100ML.BAG IVPB SCH ×2 (00:10→09:23)
--- NOTE | 2018-10-23 00:29 | P.CONS ---
History of Present Illness - Reason for Consult Consult date: 10/22/18 Proctitis Requesting physician: Leon Scott - Chief Complaint Chills, fatigue - History of Present Illness The patient is a very pleasant 88-year-old male with medical history significant for atrial fibrillation and hypertension who presents to the hospital with complaints of chills and fatigue. Per the patient she was recently seen on in the emergency department after presenting for complaints of constipation. The patient reports that he was very constipated and presented for impaction. The patient subsequently had a bowel movement which was followed by loose stool which is currently resolved. He presented back to the ER for further evaluation after feeling cold, chills and for fatigue. In the emergency department the patient had a computed tomography scan of the abdomen which was significant for wall thickening of the rectum as well as a left inguinal hernia and atelectasis of the lungs. The patient reports that currently his symptoms have resolved. He reports that he does suffer from constipation at baseline and that starting laxative therapy. He denies any abdominal pain. He reports a remote history of a colonoscopy. He denies any rectal or GI bleeding. Hemoglobin and liver enzymes were normal on presentation. Review of Systems REVIEW OF SYSTEMS: CARDIO: Denies any chest pain or palpitations, she does have a known history of atrial fibrillation. PULMONARY: Denies any shortness of breath or wheezing. GENITOURINARY: No dysuria or hematuria. MUSCULOSKELETAL: No weakness reported. SKIN: Denies any new rashes or lesions, jaundice or pallor. PSYCHIATRIC: Denies any depression or anxiety. NEUROLOGY: Denies headache, denies any new focal deficits. EARS: No tinnitus, discharge or new hearing loss. NOSE: No discharge or congestion. EYES: No pain in eyes or change in vision. CONSTITUTIONAL: No recent weight loss. No fever, chills, night sweats. 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 Smoking Status: Never smoker Past Alcohol Use History: None Reported Past Drug Use History: None Reported - Past Family History Father Family Medical History: Myocardial Infarction ([place]) Mother Family Medical History: No Reported History Medications and Allergies Home Medications Medication Instructions Recorded Confirmed Type Flecainide [Tambocor] 50 mg PO Q12HR #60 tab 07/26/16 10/21/18 Rx Metoprolol Tartrate [Lopressor] 12.5 mg PO Q48H 10/19/18 10/21/18 History Polyethylene Glycol 3350 [Miralax] 17 gm PO DAILY #14 packet 10/19/18 10/21/18 Rx Allergies Allergy/AdvReac Type Severity Reaction Status Date / Time gentamicin Allergy Unknown Verified 10/21/18 20:10 Penicillins Allergy Rash/Hives Verified 10/21/18 20:10 apixaban [From Eliquis] AdvReac WEAKNESS Verified 10/21/18 20:10 sertraline [From Zoloft] AdvReac Hallucinati Verified 10/21/18 20:10 ons Physical Exam Vitals: Vital Signs Temp Pulse Pulse Pulse Resp BP BP 10/22/18 20:09 64 10/22/18 20:02 98.0 F 68 12 111/58 10/22/18 16:07 17 10/22/18 15:00 97.9 F 68 16 110/64 10/22/18 07:00 98.4 F 60 17 107/68 10/22/18 02:39 98.0 F 65 14 115/69 10/22/18 02:00 99.4 F 73 104/63 10/22/18 01:40 91/56 10/22/18 01:30 63 19 96/67 10/22/18 01:20 65 6 L 96/67 10/22/18 01:10 64 19 98/60 10/22/18 01:00 63 21 93/54 10/22/18 00:50 64 21 93/54 10/22/18 00:40 66 19 95/58 10/22/18 00:20 65 16 100/62 10/22/18 00:10 67 20 92/55 10/22/18 00:00 69 16 102/60 10/21/18 23:50 74 16 84/56 Pulse Ox 10/22/18 20:09 10/22/18 20:02 99 10/22/18 16:07 10/22/18 15:00 100 10/22/18 07:00 97 10/22/18 02:39 99 10/22/18 02:00 96 10/22/18 01:40 10/22/18 01:30 93 L 10/22/18 01:20 92 L 10/22/18 01:10 92 L 10/22/18 01:00 92 L 10/22/18 00:50 93 L 10/22/18 00:40 94 L 10/22/18 00:20 93 L 10/22/18 00:10 93 L 10/22/18 00:00 93 L 10/21/18 23:50 93 L Intake and Output 10/22/18 10/22/18 10/23/18 14:59 22:59 06:59 Other: # Voids 1 On physical examination, patient appears comfortable in no apparent distress. HEAD: Normocephalic, atraumatic. EYES: No scleral icterus. No conjunctival injection. MOUTH: No lesions, tongue midline. NECK: Trachea midline, no gross abnormalities. CHEST: Clear to auscultation with no wheezing or rhonchi appreciated. HEART: Irregularly irregular. ABDOMEN: Soft. Bowel sounds are positive. No organomegaly. No guarding or rigidity. EXTREMITIES: No pedal edema. SKIN: No rashes, no jaundice. NEUROLOGIC: Alert and oriented x3. No focal deficits. Results CBC & Chem 7: 10/21/18 20:05 10/22/18 09:23 Labs: Abnormal Lab Results - Last 24 Hours (Table) 10/22/18 Range/Units 09:23 Creatinine 1.33 H (0.66-1.25) mg/dL Glucose 68 L (74-99) mg/dL Total Protein 6.1 L (6.3-8.2) g/dL Albumin 3.1 L (3.5-5.0) g/dL Microbiology - Last 24 Hours (Table) 10/21/18 20:05 Blood Culture - Preliminary Blood No Growth after 24 hours 10/21/18 21:08 Urine Culture - Preliminary Urine,Clean Catch CT scan - abdomen: report reviewed (computed tomography scan of the abdomen which was significant for wall thickening of the rectum as well as a left inguinal hernia and atelectasis of the lungs.) Assessment and Plan (1) Colitis Narrative/Plan: Patient with a known history of constipation who was recently seen in the emergency department it is severe ulceration and impaction. He presented back with symptoms of chills and fatigue and was found to have CT findings of rectal wall thickening area he recently had loose bowel movements after presenting with impaction. Currently he is reporting that his symptoms are resolved. Unclear etiology and may represent local changes secondary to constipation and impaction, also consider infectious colitis or other etiology. Current Visit: Yes Status: Acute Code(s): K52.9 - NONINFECTIVE GASTROENTERITIS AND COLITIS, UNSPECIFIED SNOMED Code(s): 79284234 (2) Atrial fibrillation with RVR Current Visit: No Status: Acute Code(s): I48.91 - UNSPECIFIED ATRIAL FIBRILLATION SNOMED Code(s): 760740786151325 Plan: Supportive care Okay for diet Continue short course of antibiotics currently on Rocephin and Flagyl Recommend outpatient follow-up with gastroenterology in consideration for colonoscopic evaluation Recommend bowel regimen at home, have discussed the use of fiber supplementation with Benefiber or the addition of daily MiraLAX Thank you for allowing us to participate in the care of this patient we will continue to follow
[2018-10-23] MEDS: SODIUM CHLORIDE 0.9% 1,000 ML IV SCH (05:18)
[2018-10-23 06:08] LABS: Basophils % (A) 0 %; Eosinophils % (A) 0 %; HCT 44.2 % (39.0-53.0); Lymphocytes # (A) 0.7 k/uL (1.0-4.8); Lymphocytes % (A) 10 %; MCH 30.9 pg (25.0-35.0); MCHC 31.7 g/dL (31.0-37.0); MCV 97.6 fL (80.0-100.0); Mean Platelet Volume 9.4; Monocytes # (A) 0.1 k/uL (0-1.0); Monocytes % (A) 2 %; Neutrophils # (A) 6.2 k/uL (1.3-7.7); Neutrophils % (A) 87 %; Platelet Count 111 k/uL (150-450); RBC 4.53 m/uL (4.30-5.90); RDW 12.4 % (11.5-15.5); WBC 7.2 k/uL (3.8-10.6)
[2018-10-23 06:28] LABS: Calcium 8.6 mg/dL (8.4-10.2); Magnesium 1.5 mg/dL (1.6-2.3); Potassium 4.7 mmol/L (3.5-5.1)
[2018-10-23] MEDS ORDERED: METOPROLOL TARTRATE 12.5 MG TAB PO SCH (09:00)
[2018-10-23 09:21] VITALS: BP 134/76; PULSE 71; RESP 16; TEMP 97.5
[2018-10-23] MEDS: FLECAINIDE 50 MG TAB PO SCH (09:23)
--- NOTE | 2018-10-23 12:35 | P.DS ---
Providers Date of admission: 10/21/18 23:09 Attending physician: Leon Scott Consults: 10/21/18 23:09 Consult Physician Routine Consulting Provider: Shannan Page Consult Reason/Comments: Colitis Do you want consulting provider notified?: Yes, Notify in am Primary care physician: Leon Scott This is dictation on discharge summary date of service 10/23/2018. Final diagnosis #1 hypotension #2 acute HTN recovering with the underlying chronic kidney disease stage III. #3 proctitis associated with stool retention followed by diarrhea. #4 atrial fibrillation with a controlled ventricular response rate of 70s. #5 history of hypertension controlled. #6 dehydration corrected. #7 mild elevation of CPK associated with minimal rhabdo post exercise. #8 lactic acidosis abnormal elevation 3.3 on admission. #9 underlying Raynaud's phenomena with the purplish discoloration of the hand and feet with the cold weather associated with negative DNA and negative DNA. Consultation with GI: Dr. jovel pattern assembler. Patient presented with fever as well as feeding generalized weakness with the hypotension associated with the increase creatinine however patient also had computed tomography scan of the abdomen was contrast. With the dehydration and rectal thickening consultation with the gastroenterology and started on IV Rocephin as well as Flagyl. Patient hydrated with IV normal saline and given for one dose of steroid Solu-Medrol 125 mg IV piggyback with the possibility of adrenal gland suppression meanwhile we obtain the cortisol level prior to the injection. Subsequently blood pressure improved with from the the 90 systolic currently is 135/67/134/67 with the saturation of the oxygen 98 and afebrile with the temperature 97.5 and pulse rate regular 71 with a respiratory rate 16. His white count improved from 11.9-7.2 and hemoglobin stable 14 and hematocrit 44.2. His chemistry profile today indicating sodium 139 potassium 4.7 chloride 110 carbon dioxide 22 BUN 18 creatinine 1.31 with estimated glomerular filtration rate 56 and his blood sugar was low currently his was 86 yesterday today is 141. He is magnesium is low 1.5, patient to had elevated lactic acid on admission 3.3 with hydration resolved to 0.8. His liver enzyme within normal limits CPKMB 2.4 his cortisol level was 6 and ANAs screen was negative and DNA double-stranded negative and the anti-DNA less than 1, influenza A not detected influenza B not detected. Urine culture was negative. After 24 hour period Presentation to the emergency room all was 88 years old white male admitted with a fever and he had history of constipation came to the ER followed by diarrhea after he take 2 tablets of stool laxative. He felt at the time of admission fever with lactic acid elevated 3.3 and dehydrated with elevated creatinine . Patient subsequently admitted to the hospital hydrated and found that he had hypotension and continue the hydration and started on supporting the adrenal gland was 1 dose of Solu-Medrol 125 mg and a hyper hypotension has been result as well patient also did not take his metoprolol 12.5 every 48 hour and subsequently he felt fine and blood pressure today is stable. Patient is ambulatory and patient did not need any DVT prophylaxis. As he ambulatory in the leach as well as in the room. On physical exam: Patient's conscious alert oriented 3 and he feeling great at this time and that he wants to go home. Vital sign today temperature 97.5 pulse 71 respiratory rate 16 blood pressure 134/76 with a mean 95 he has pulse ox 98% on room air. Laboratory discussed with the patient and the creatinine started to improve with the increase fluid intake he has underlying chronic kidney disease stage III with the estimated glomerular filtration rate 48, patient magnesium is 1.5 and we will give him on a gram of magnesium prior to discharge. And a creatinine 1.31 yesterday was 1.33. Patient has also magnesium low 1.5 and will give him a gram of magnesium before discharge home today. HEENT the head was normocephalic and atraumatic pupils equal reactive oropharynx was normal with the uvula midline normal tongue neck was supple no JVD no thyromegaly no lymphadenopathy trachea midline. Chest was clear auscultation percussion. Heart was regular sinus rhythm. Abdomen was soft nontender positive bowel sounds no perineal burning or pain no pain with urination and no suprapubic tenderness and able to ambulate and extremities no edema and positive pulses. Neurologically: No headache no blurred vision no lateralizing sign no cranial nerve deficit and no motor or sensory deficit. Patient stable general condition for discharge home today to follow-up with Dr. jovel the gastroenterology for the underlying proctitis. Patient will be receiving Flagyl only 500 mg 3 times a day for 5 days. And new We'll be following help this regard We're in the office. And increase activity and oral intake thank you is end of dictation by Dr[facility] Oliverio [facility]ae [facility] thank you end dictation Patient Condition at Discharge: Stable Plan - Discharge Summary Discharge Rx Participant: No New Discharge Prescriptions: No Action Flecainide [Tambocor] 50 mg PO Q12HR #60 tab Metoprolol Tartrate [Lopressor] 12.5 mg PO Q48H Polyethylene Glycol 3350 [Miralax] 17 gm PO DAILY #14 packet Discharge Medication List Flecainide [Tambocor] 50 mg PO Q12HR #60 tab 07/26/16 [Rx] Metoprolol Tartrate [Lopressor] 12.5 mg PO Q48H 10/19/18 [History] Polyethylene Glycol 3350 [Miralax] 17 gm PO DAILY #14 packet 10/19/18 [Rx] Follow up Appointment(s)/Referral(s): Leon Scott MD [Primary Care Provider] - 1-2 days
[2018-10-23] MEDS ORDERED: MAGNESIUM SULFATE-D5W PMX 1 GM in DEXTROSE/WATER 1 100ML.BAG IVPB ONE (13:00)
--- NOTE | 2018-10-24 10:03 | P.ARTDOP ---
Arterial Doppler LOWER EXTREMITY ARTERIAL DOPPLER: DATE OF SERVICE: 10/22/2018 Reason for study: Pain. Doppler waveforms: Multiphasic bilaterally throughout. Pulse volume recording: Normal configuration. Pressure gradients: Mild gradient distally on the right. Ankle-brachial indices: 0.86 on the right and greater than 1 on the left. Toe pressures: [] on the right, [] on the left Impression: Left side appears to be normal. Right side shows possible mild femoral popliteal disease. Not likely to be clinically significant..
--- NOTE | 2018-10-25 10:26 | CDI ---
Documentation Clarification Form Date: 10/25/18 From: Rachel Arash Ángela Janay, [employer] Operator Hours-8:30 am & 5 pm M-F Admit Date: 10/21/2018 11:09:00 PM Patient Name: Maximilian Frazier Visit Number: [id number] Discharge Date: 10/23/2018 3:21:00 PM ATTENTION: The Clinical Documentation Specialists (CDI) and [facility] Coding Staff appreciate your assistance in clarifying documentation. Please respond to the clarification below the line at the bottom and electronically sign. The CDI & [facility] Coding staff will review the response and follow-up if needed. Please note: Queries are made part of the Legal Health Record. If you have any questions, please contact the author of this message via ITS. Dr. Leon Scott Atrial Fibrillation is documented in the ED note, H&P, consult & DS. History/Risk Factors: hypotension, ac renal failure, acidosis, dehydration, thrombocytopenia, HTN w cardiology w CKD III EKG/telemetry: sinus, incomplete RBBB Treatment: Tambocor 50 mg po Q 12hr In your professional opinion, can you please clarify the type of Atrial Fibrillation, if known? Chronic/Permanent Paroxysmal Persistent Other, please specify Unable to determine history of atrial fibrillation treated by cardiology was paroxysmal only and Dr. Peng the deputy coroner treated him with flecainide no farther atrial fibrillation and I don't have the exact event from the cardiology however currently he is sinus, and only was history of it, on the's admission I could not say if patient had atrial fib. With the answer could be unable to determine. MTDD
== END 2018-10-23 15:21 | disposition home or self-care (01) | DRG 315 ==
LOC: EC 19:51 → 4SSUR 23:09
PROVIDERS: ADMIT Internal Medicine; ATTEND Internal Medicine
DX: I95.9 Hypotension, unspecified (principal); J98.11 Atelectasis; N17.9 Acute kidney failure, unspecified; E87.2 Acidosis; E86.0 Dehydration; D69.6 Thrombocytopenia, unspecified; I13.10 Hypertensive heart and chronic kidney disease without heart failure, with stage 1 through stage 4 chronic kidney disease, or unspecified chronic kidney disease; N18.3 Chronic kidney disease, stage 3 (moderate); I48.91 Unspecified atrial fibrillation; I45.10 Unspecified right bundle-branch block; K52.9 Noninfective gastroenteritis and colitis, unspecified; K62.89 Other specified diseases of anus and rectum; B35.1 Tinea unguium; I73.00 Raynaud's syndrome without gangrene; K40.90 Unilateral inguinal hernia, without obstruction or gangrene, not specified as recurrent; L60.3 Nail dystrophy; K59.00 Constipation, unspecified; M53.3 Sacrococcygeal disorders, not elsewhere classified; I73.9 Peripheral vascular disease, unspecified; Z79.899 Other long term (current) drug therapy; Z86.13 Personal history of malaria; Z87.81 Personal history of (healed) traumatic fracture; Z96.642 Presence of left artificial hip joint; Z88.1 Allergy status to other antibiotic agents; Z88.0 Allergy status to penicillin; Z88.8 Allergy status to other drugs, medicaments and biological substances; Z82.49 Family history of ischemic heart disease and other diseases of the circulatory system
CPT/HCPCS: 36415; 71046; 74022; 74177; 80048; 80053; 81001; 82306; 82533; 82550; 82553; 83605; 83735; 84100; 84484; 85025; 85610; 85652; 85730; 86038; 86225; 87040; 87086; 87502; 93005; 93923; 96360; 96361; 96365; 96366; 99284; 99285

== ENCOUNTER → 2019-01-08 | Outpatient (CLI) | payer MEDICARE, BC ==
[2019-01-08 09:43] LABS: Basophils # (A) 0.1 k/uL (0-0.2); Basophils % (A) 1 %; Eosinophils # (A) 0.2 k/uL (0-0.7); Eosinophils % (A) 4 %; HCT 49.5 % (39.0-53.0); HGB 15.3 gm/dL (13.0-17.5); Lymphocytes # (A) 1.7 k/uL (1.0-4.8); Lymphocytes % (A) 32 %; MCH 31.1 pg (25.0-35.0); MCV 100.5 fL (80.0-100.0); Mean Platelet Volume 9.6; Monocytes # (A) 0.4 k/uL (0-1.0); Monocytes % (A) 7 %; Neutrophils # (A) 2.7 k/uL (1.3-7.7); Neutrophils % (A) 52 %; Platelet Count 119 k/uL (150-450); RBC 4.93 m/uL (4.30-5.90); RDW 12.4 % (11.5-15.5); WBC 5.2 k/uL (3.8-10.6)
[2019-01-08 12:26] LABS: Appearance,Urine Clear (Clear); Bilirubin,Urine Negative (Negative); Blood,Urine Negative (Negative); Color,Urine Yellow; Glucose,Urine (UA) Negative (Negative); Ketones,Urine Negative (Negative); Leukocyte Esterase,Urine Negative (Negative); Nitrite,Urine Negative (Negative); Protein,Urine Negative (Negative); Specific Gravity,Urine 1.017 (1.001-1.035); Urobilinogen,Urine <2.0 mg/dL (<2.0)
[2019-01-08 13:09] LABS: Erythrocyte Sedimentation Rate 6 mm/hr (0-15)
[2019-01-08 16:16] LABS: Parathyroid Hormone Intact 53.7 pg/mL (14.0-72.0)
[2019-01-08 16:21] LABS: Vitamin D 25 Hydroxy 24.5 ng/mL (30.0-100.0)
[2019-01-08 16:26] LABS: Albumin 4.1 g/dL (3.80-4.90); Albumin/Globulin Ratio 1.52 (1.60-3.17); Anion Gap 5.8 mmol/L (4.00-12.00); Calcium 9.7 mg/dL (8.7-10.3); Carbon Dioxide 29.2 mmol/L (21.6-31.8); Folate, Serum 16.5 ng/mL; Globulin 2.7 g/dL (1.6-3.3); LDL Cholesterol,Calculated 127.6 mg/dL (0.0-131.0); Magnesium 1.8 mg/dL (1.5-2.4); Phosphorus 3.9 mg/dL (2.4-5.1); Potassium 5.3 mmol/L (3.5-5.5); Total Bilirubin 0.5 mg/dL (0.3-1.2); Total Protein 6.8 g/dL (6.2-8.2); VLDL Calculation 13.4 mg/dL (5.00-40.00)
[2019-01-08 16:35] LABS: T4, Free (Free Thyroxine) 1.3 ng/dL (0.80-1.80)
== END ==
LOC: LABWHC1 08:45
PROVIDERS: ATTEND Internal Medicine
DX: N40.0 Benign prostatic hyperplasia without lower urinary tract symptoms (principal); E87.8 Other disorders of electrolyte and fluid balance, not elsewhere classified; E78.5 Hyperlipidemia, unspecified; E03.9 Hypothyroidism, unspecified; E55.9 Vitamin D deficiency, unspecified; E16.2 Hypoglycemia, unspecified; I73.9 Peripheral vascular disease, unspecified; N18.3 Chronic kidney disease, stage 3 (moderate)
CPT/HCPCS: 36415; 80053; 80061; 81003; 82306; 82550; 82607; 82746; 83735; 83970; 84100; 84153; 84439; 84443; 84550; 85025; 85652

== ENCOUNTER → 2019-05-13 | Outpatient (CLI) | payer MEDICARE, BC ==
[2019-05-13 16:17] LABS: African American GFR (CKD) 47.2 (60.0-200.0); Anion Gap 7.8 mmol/L (4.00-12.00); BUN/Creat Ratio 16.67 Ratio (12.00-20.00); Calcium 9.8 mg/dL (8.7-10.3); Carbon Dioxide 27.2 mmol/L (21.6-31.8); Potassium 5.4 mmol/L (3.5-5.5)
== END | disposition home or self-care (01) ==
LOC: LABWHC1 07:18
PROVIDERS: ATTEND Internal Medicine Cardiovascular Disease
DX: I10 Essential (primary) hypertension (principal)
CPT/HCPCS: 36415; 80048

== ENCOUNTER → 2019-06-24 | Outpatient (CLI) | payer MEDICARE, BC ==
[2019-06-24 16:09] LABS: African American GFR (CKD) 43.6 (60.0-200.0); Non-African American GFR(CKD) 37.6 (60.0-200.0)
== END ==
LOC: LABWHC1 08:55
PROVIDERS: ATTEND Internal Medicine Cardiovascular Disease
DX: I71.2 Thoracic aortic aneurysm, without rupture (principal)
CPT/HCPCS: 36415; 82565; 84520

== ENCOUNTER → 2019-06-26 | Outpatient (CLI) | payer MEDICARE, BC ==
--- NOTE | 2019-06-26 14:18 | CT ---
EXAMINATION TYPE: CT angio chest DATE OF EXAM: 06/26/2019 1:19 PM COMPARISON: 04/17/2018 HISTORY: Thoracic aortic aneurysm. CT DLP: 347 mGycm Automated exposure control for dose reduction was used. CONTRAST: CTA scan of the thorax is performed with IV Contrast, patient injected with 80 mL of Isovue 370, pulm onary embolism protocol. . FINDINGS: Ascending thoracic aorta is similar in size measuring up to 4.3 cm. Arch of the aorta measuring up to 2.9 cm. A few scattered calcified atheromatous plaques are seen in the arch of the aorta and extendi ng into the left subclavian artery. 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 Tortuosity of the descending thoracic aorta measuring up to 2.8 cm. No evidence o f dissection. LUNGS: Redemonstration of subpleural reticulation scattered throughout the bilateral lungs without ev idence of suspicious nodules, masses or infiltrates. There is no pleural effusion or pneumothorax see n. The tracheobronchial tree is patent. MEDIASTINUM: There is satisfactory enhancement of the pulmonary artery and its branches, there is no CT evidence for pulmonary embolism. No axillary lymphadenopathy. Redemonstration of anterior tracheal lymph node measuring up to 1.8 cm w ith previous measurement of approximately 1.3 cm. No pericardial effusion. OTHER: Multilevel degenerative changes of the thoracic spine. IMPRESSION: SIMILAR SIZE OF THE ASCENDING THORACIC AORTA MEASURING UP TO 4.3 CM. CONTINUED SURVEILLANCE IS RECOMM ENDED. SLIGHTLY INCREASING SIZE OF ANTERIOR TRACHEAL MEDIASTINAL LYMPH NODE, WHICH MAY BE DUE TO THE DIFFERE NCES IN CONTRAST AND NONCONTRAST EXAMINATION. ATTENTION ON FOLLOW-UP FILMS IS RECOMMENDED.
== END | disposition home or self-care (01) ==
LOC: RADCTMAIN 12:25
PROVIDERS: ATTEND Internal Medicine
DX: I71.4 Abdominal aortic aneurysm, without rupture (principal)
CPT/HCPCS: 71275; Q9967

== ENCOUNTER 2019-09-05 18:59 | Observation (INO) | payer MEDICARE, BC ==
[2019-09-05 19:50] LABS: Basophils # (A) 0.2 k/uL (0-0.2); Basophils % (A) 2 %; Eosinophils # (A) 0.4 k/uL (0-0.7); Eosinophils % (A) 6 %; HCT 50.4 % (39.0-53.0); HGB 15.9 gm/dL (13.0-17.5); Lymphocytes # (A) 2.6 k/uL (1.0-4.8); Lymphocytes % (A) 34 %; MCH 31.4 pg (25.0-35.0); MCHC 31.4 g/dL (31.0-37.0); MCV 99.9 fL (80.0-100.0); Mean Platelet Volume 10.3; Monocytes # (A) 0.5 k/uL (0-1.0); Monocytes % (A) 6 %; Neutrophils # (A) 3.7 k/uL (1.3-7.7); Neutrophils % (A) 49 %; Platelet Count 105 k/uL (150-450); RBC 5.05 m/uL (4.30-5.90); RDW 12.5 % (11.5-15.5); WBC 7.5 k/uL (3.8-10.6)
--- NOTE | 2019-09-05 19:51 | ED ---
General Adult HPI - General Source: patient, RN notes reviewed, old records reviewed Mode of arrival: ambulatory Limitations: no limitations <Jacques Lowe - Last Filed: 09/05/19 21:48> <Luz Marina Marino - Last Filed: 09/10/19 13:43> - General Chief complaint: Recheck/Abnormal Lab/Rx Stated complaint: High BP Time Seen by Provider: 09/05/19 19:27 - History of Present Illness Initial comments: 89-year-old male patient past history of hypertension resents to ED with chief complaint of hypertension. Patient reports that he woke up within a minute. Patient reports that he felt like his head was throbbing, took his blood pressure. Patient reports that was very elevated over 200 systolic. Patient points is his systolic is generally under 150. Patient took a double dose of his metoprolol. Patient is prescribed 12.5, took 25. Patient is currently asymptomatic at this time. Systemic: Pt denies fatigue, fever/chills, rash. Pt denies weakness, night sweats, weight loss. Neuro: Pt denies headache, visual disturbances, syncope or pre-syncope. HEENT: Pt denies ocular discharge or irritation, otalgia, rhinorrhea, pharyngitis or notable lymphadenopathy. Cardiopulmonary: Pt denies chest pain, SOB, heart palpitations, dyspnea on exertion. Abdominal/GI: Pt denies abdominal pain, n/v/d. : Pt denies dysuria, burning w/ urination, frequency/urgency. Denies new onset urinary or bowel incontinence. MSK: Pt denies myalgia, loss of strength or function in extremities. Neuro: Pt denies new onset weakness, paresthesias. (Jacques Lowe) - Related Data Home Medications Medication Instructions Recorded Confirmed Atorvastatin [Lipitor] 10 mg PO DAILY 09/06/19 09/07/19 Diazepam [Valium] 5 mg PO DAILY PRN 09/07/19 09/07/19 Previous Rx's Medication Instructions Recorded hydrALAZINE HCL [Apresoline] 10 mg PO BID #60 tab 09/07/19 Allergies Allergy/AdvReac Type Severity Reaction Status Date / Time gentamicin Allergy Rash/Hives Verified 09/07/19 15:50 Penicillins Allergy Rash/Hives Verified 09/07/19 15:50 apixaban [From Eliquis] AdvReac WEAKNESS Verified 09/07/19 15:50 epinephrine AdvReac tachycardia Verified 09/07/19 15:50 sertraline [From Zoloft] AdvReac Hallucinati Verified 09/07/19 15:50 ons Review of Systems ROS Other: All systems not noted in ROS Statement are negative. <Jacques Lowe - Last Filed: 09/05/19 21:48> ROS Other: All systems not noted in ROS Statement are negative. <Luz Marina Marino - Last Filed: 09/10/19 13:43> ROS Statement: Those systems with pertinent positive or pertinent negative responses have been documented in the HPI. Past Medical History Past Medical History: Atrial Fibrillation, Hypertension Additional Past Medical History / Comment(s): MALARIA WHEN IN [place] History of Any Multi-Drug Resistant Organisms: None Reported Past Surgical History: Hernia Repair, Orthopedic Surgery Additional Past Surgical History / Comment(s): lt hip surgery,ing hernia repair, left elbow sx Past Anesthesia/Blood Transfusion Reactions: No Reported Reaction Additional Past Anesthesia/Blood Transfusion Reaction / Comment(s): no past blood transfusion Past Psychological History: No Psychological Hx Reported Smoking Status: Never smoker Past Alcohol Use History: None Reported Past Drug Use History: None Reported - Past Family History Father Family Medical History: Myocardial Infarction ([place]) Mother Family Medical History: No Reported History <Jacques Lowe - Last Filed: 09/05/19 21:48> General Exam Limitations: no limitations <Jacques Lowe - Last Filed: 09/05/19 21:48> - General Exam Comments Initial Comments: Constitutional: NAD, AOX3, Pt has pleasant affect. HEENT: NC/AT, trachea midline, neck supple, no lymphadenopathy. Posterior pharynx non erythematous, without exudates. External ears appear normal, without discharge. Mucous membranes moist. Eyes PERRLA, EOM intact. There is no scleral icterus. No pallor noted. Cardiopulmonary: RRR, no murmurs, rubs or gallops, no JVD noted. Lungs CTAB in anterior and posterior [place]. No peripheral edema. Abdominal exam: Abdomen soft and non-distended. Abdomen non-tender to palpation in all 4 quadrants. Bowel sounds active in LLQ. No hepatosplenomegaly. No ecchymosis Neuro: CN II-XII intact. No nuchal rigidity. No raccon eyes, no lockhart sign, no hemotympanum. No cervical spinal tenderness. MSK: No posterior calf tenderness bilaterally, homans sign negative bilaterally. Posterior tibialis and radial pulse +2 bilaterally. Sensation intact in upper and lower extremities. Full active ROM in upper and lower extremities, 5/5 stregnth. (Jacques Lowe) Course Vital Signs 09/05/19 09/05/19 09/05/19 19:08 20:26 21:47 Temperature 97 F L Pulse Rate 52 L 44 L 45 L Respiratory 20 18 18 Rate Blood Pressure 155/71 175/93 140/61 O2 Sat by Pulse 99 100 97 Oximetry 09/05/19 22:32 Temperature Pulse Rate 45 L Respiratory 18 Rate Blood Pressure 145/72 O2 Sat by Pulse 97 Oximetry Medical Decision Making - Lab Data Result diagrams: 09/05/19 19:35 09/05/19 19:35 <Jacques Lowe - Last Filed: 09/05/19 21:48> - Lab Data Result diagrams: 09/05/19 19:35 09/07/19 05:39 <Luz Marina Marino - Last Filed: 09/10/19 13:43> - Medical Decision Making 89-year-old male patient past history of hypertension resents to ED with chief complaint of hypertension. Patient reports that he woke up within a minute. Patient reports that he felt like his head was throbbing, took his blood pressure. Patient reports that was very elevated over 200 systolic. Patient points is his systolic is generally under 150. Patient took a double dose of his metoprolol. Patient is prescribed 12.5, took 25. Patient is currently asymptomatic at this time. Patient vital signs displayed mild bradycardia blood pressure stable. Physical exam did not display acute pathology. Neurologic exam within normal limits. Of investigations noncompressive,. Baseline. EKG displayed bradycardia. Brain CT displayed cerebral atrophy, no acute intracranial abnormality. Patient is very likely due to beta nelia. Patient will be placed in observation with court recording monitor. Case discussed with Dr. Marino. (Jacques Lowe) I was available for consultation in the emergency department. The history and physical exam were done by the midlevel provider. I was consulted for this patients care. I reviewed the case with the midlevel provider and based on their presentation of the patient, I agree with the assessment, medical decision making and plan of care as documented. I evaluated the patient myself. I discussed the case with Dr. Scott who accepted admission of the patient with ca rdiology consult. Chart was dictated using [employer] dictation software. Attempts were made to corre ct any dictation errors however some typographical errors may persist. (Luz Marina Marino) - Lab Data Lab Results 09/05/19 09/05/19 09/05/19 Range/Units 09:15 19:35 19:35 WBC 7.5 (3.8-10.6) k/uL RBC 5.05 (4.30-5.90) m/uL Hgb 15.9 (13.0-17.5) gm/dL Hct 50.4 (39.0-53.0) % MCV 99.9 (80.0-100.0) fL MCH 31.4 (25.0-35.0) pg MCHC 31.4 (31.0-37.0) g/dL RDW 12.5 (11.5-15.5) % Plt Count 105 L (150-450) k/uL Neutrophils % 49 % Lymphocytes % 34 % Monocytes % 6 % Eosinophils % 6 % Basophils % 2 % Neutrophils # 3.7 (1.3-7.7) k/uL Lymphocytes # 2.6 (1.0-4.8) k/uL Monocytes # 0.5 (0-1.0) k/uL Eosinophils # 0.4 (0-0.7) k/uL Basophils # 0.2 (0-0.2) k/uL PT (9.0-12.0) sec INR (<1.2) APTT (22.0-30.0) sec Sodium 139 (137-145) mmol/L Potassium 5.1 (3.5-5.1) mmol/L Chloride 104 (98-107) mmol/L Carbon Dioxide 25 (22-30) mmol/L Anion Gap 10 mmol/L BUN 26 H (9-20) mg/dL Creatinine 1.56 H (0.66-1.25) mg/dL Est GFR (CKD-EPI)AfAm 45 (>60 ml/min/1.73 sqM) Est GFR (CKD-EPI)NonAf 39 (>60 ml/min/1.73 sqM) Glucose 88 (74-99) mg/dL Calcium 9.7 (8.4-10.2) mg/dL Magnesium 1.7 (1.6-2.3) mg/dL Total Bilirubin 0.6 (0.2-1.3) mg/dL AST 36 (17-59) U/L ALT 21 (21-72) U/L Alkaline Phosphatase 97 (38-126) U/L Troponin I (0.000-0.034) ng/mL Total Protein 8.0 (6.3-8.2) g/dL Albumin 4.5 (3.5-5.0) g/dL TSH 2.030 (0.465-4.680) mIU/L Urine Color Urine Appearance (Clear) Urine pH (5.0-8.0) Ur Specific [place] (1.001-1.035) Urine Protein (Negative) Urine Glucose (UA) (Negative) Urine Ketones (Negative) Urine Blood (Negative) Urine Nitrite (Negative) Urine Bilirubin (Negative) Urine Urobilinogen (<2.0) mg/dL Ur Leukocyte Esterase (Negative) 09/05/19 09/05/19 09/05/19 Range/Units 19:35 19:35 20:25 WBC (3.8-10.6) k/uL RBC (4.30-5.90) m/uL Hgb (13.0-17.5) gm/dL Hct (39.0-53.0) % MCV (80.0-100.0) fL MCH (25.0-35.0) pg MCHC (31.0-37.0) g/dL RDW (11.5-15.5) % Plt Count (150-450) k/uL Neutrophils % % Lymphocytes % % Monocytes % % Eosinophils % % Basophils % % Neutrophils # (1.3-7.7) k/uL Lymphocytes # (1.0-4.8) k/uL Monocytes # (0-1.0) k/uL Eosinophils # (0-0.7) k/uL Basophils # (0-0.2) k/uL PT 10.6 (9.0-12.0) sec INR 1.0 (<1.2) APTT 28.1 (22.0-30.0) sec Sodium (137-145) mmol/L Potassium (3.5-5.1) mmol/L Chloride (98-107) mmol/L Carbon Dioxide (22-30) mmol/L Anion Gap mmol/L BUN (9-20) mg/dL Creatinine (0.66-1.25) mg/dL Est GFR (CKD-EPI)AfAm (>60 ml/min/1.73 sqM) Est GFR (CKD-EPI)NonAf (>60 ml/min/1.73 sqM) Glucose (74-99) mg/dL Calcium (8.4-10.2) mg/dL Magnesium (1.6-2.3) mg/dL Total Bilirubin (0.2-1.3) mg/dL AST (17-59) U/L ALT (21-72) U/L Alkaline Phosphatase (38-126) U/L Troponin I <0.012 (0.000-0.034) ng/mL Total Protein (6.3-8.2) g/dL Albumin (3.5-5.0) g/dL TSH (0.465-4.680) mIU/L Urine Color Light Yellow Urine Appearance Clear (Clear) Urine pH 6.0 (5.0-8.0) Ur Specific [place] 1.006 (1.001-1.035) Urine Protein Negative (Negative) Urine Glucose (UA) Negative (Negative) Urine Ketones Negative (Negative) Urine Blood Negative (Negative) Urine Nitrite Negative (Negative) Urine Bilirubin Negative (Negative) Urine Urobilinogen <2.0 (<2.0) mg/dL Ur Leukocyte Esterase Negative (Negative) Disposition Is patient prescribed a controlled substance at d/c from ED?: No <Jacques Lowe - Last Filed: 09/05/19 21:48> <Luz Marina Marino - Last Filed: 09/10/19 13:43> Clinical Impression: Bradycardia Disposition: ADMITTED IP TO THIS HOSP Condition: Fair
[2019-09-05 19:59] LABS: Albumin 4.5 g/dL (3.5-5.0); Calcium 9.7 mg/dL (8.4-10.2); Magnesium 1.7 mg/dL (1.6-2.3); Potassium 5.1 mmol/L (3.5-5.1); Total Bilirubin 0.6 mg/dL (0.2-1.3)
[2019-09-05 20:04] LABS: Partial Thromboplastin Time 28.1 sec (22.0-30.0); Prothrombin Time 10.6 sec (9.0-12.0)
[2019-09-05 21:04] LABS: Appearance,Urine Clear (Clear); Bilirubin,Urine Negative (Negative); Blood,Urine Negative (Negative); Color,Urine Light Yellow; Glucose,Urine (UA) Negative (Negative); Ketones,Urine Negative (Negative); Leukocyte Esterase,Urine Negative (Negative); Nitrite,Urine Negative (Negative); Protein,Urine Negative (Negative); Specific Gravity,Urine 1.006 (1.001-1.035); Urobilinogen,Urine <2.0 mg/dL (<2.0)
--- NOTE | 2019-09-05 21:12 | CT ---
EXAMINATION TYPE: CT brain wo con DATE OF EXAM: 09/05/2019 COMPARISON: None HISTORY: Hypertensive. Pt states BP was in the "300s". CT DLP: 1099.4 mGycm Automated exposure control for dose reduction was used. FINDINGS: There is cerebral cortical atrophy. There is no mass effect nor midline shift. There is no sign of in tracranial hemorrhage. Calvarium is intact. IMPRESSION: CEREBRAL ATROPHY. NO ACUTE INTRACRANIAL ABNORMALITY.
[2019-09-05] MEDS ORDERED: NALOXONE 0.4 MG/ML 1 ML VIAL IV PRN (21:46)
[2019-09-05] MEDS ORDERED: SODIUM CHLORIDE 0.9% 1,000 ML IV SCH (22:00)
[2019-09-06] MEDS: hydrALAZINE HCL 10 MG TAB PO SCH ×2 (09:28→19:57)
--- NOTE | 2019-09-06 09:34 | P.CRDCN ---
History of Present Illness History of present illness: This is a pleasant 89-year-old female past medical history significant for paroxysmal atrial flutter, hypertension and dyslipidemia. He follows in the office with Dr. Augustin. We have been asked to see him in consultation secondary to bradycardia. He states yesterday he started experiencing a headache/. Sensation in his head. This does happen to him from time to time an d then this occurs he checks his blood pressure. He checked his blood pressure yesterday and states it was extremely elevated. He took half of a Valium to see if this would improve his blood pressure. However he became quite anxious and concerned as his blood pressure seemed to be going up and his headache was not improving. He took an additional dose of Lopressor and then came to the hospital for further evaluation of his blood pressure. Upon arrival blood pressure was 155/93. Slowly over the course of the next 20 minutes his headache started to subside. He denies any symptoms of chest discomfort, shortness of breath, dizziness or palpitations. EKG obtained revealed market sinus bra dycardia with a heart rate of 40. He was kept on observation for further evaluation. He states from time to time when he does check his pulse his heart rate is in the 40s. He denies ever having symptoms of dizziness or syncope. Laboratory data reviewed, creatinine 1.56 with a GFR of 39, cardiac enzymes negative 1, magnesium 1.7 and potassium 5.1. Current daily cardiac medications include flecainide 50 mg twice a day, Lopressor 12.5 mg every other day and atorvastatin 10 mg daily. At the time of my exam: CONSTITUTIONAL: Denies fever. Denies chills. EYES: Denies blurred vision. Denies vision changes. Denies eye pain. EARS, NOSE, MOUTH & THROAT: Denies headache. Denies sore throat. Denies ear pain. CARDIOVASCULAR: Denies chest pain. Denies shortness of breath. Denies orthopnea. Denies PND. Denies palpitations. RESPIRATORY: Denies cough. GASTROINTESTINAL: Denies abdominal pain. Denies diarrhea. Denies constipation. Denies nausea. Denies vomiting. MUSCULOSKELETAL: Denies myalgias. INTEGUMENTARY: Denies pruitis. Denies rash. NEUROLOGIC: Denies numbness. Denies tingling. Denies weakness. PSYCHIATRIC: Denies anxiety. Denies depression. ENDOCRINE: Denies fatigue. Denies weight change. Denies polydipsia. Denies polyurina. GENITOURINARY: Denies burning, hematuria or urgency with micturation. HEMATOLOGIC: Denies history of anemia. Denies bleeding. Blood pressure 132/81 with a heart rate of 48 afebrile and maintaining oxygen saturation on room air GENERAL: This is a 89-year-old male in no apparent distress at the time of my examination. HEENT: Head is atraumatic, normocephalic. Pupils are equal, round. Sclerae anicteric. Conjunctivae are clear. Mucous membranes of the mouth are moist. Neck is supple. There is no jugular venous distention. No carotid bruit is heard. LUNGS: Clear to auscultation no wheezes, rales or rhonchi. No chest wall tenderness is noted on palpation or with deep breathing. HEART: Regular rate and rhythm without murmurs, rubs or gallops. S1 and S2 heard. ABDOMEN: Soft, nontender. Bowel sounds are heard. No organomegaly noted. EXTREMITIES: No evidence of peripheral edema and no calf tenderness noted. VASCULAR: Radial and dorsalis pedis pulses palpated, no evidence of clubbing. NEUROLOGIC: Patient is awake, alert and oriented x3. ASSESSMENT Sinus bradycardia, asymptomatic. On lopressor and flecanide. Hypertension Dyslipidemia PLAN Discontinue flecanide and lopressor. Initiate on hydralazine 10 mg BID for blood pressure control. Check TSH. Continue telemetry monitoring. If heart rate remains stable and he asymptomatic he may be discharged later this evening. Thank you kindly for this consultation. Nurse Practitioner note has been reviewed, I agree with a documented findings and plan of care. Patient was seen and examined. Past Medical History Past Medical History: Atrial Fibrillation, Hypertension Additional Past Medical History / Comment(s): MALARIA WHEN IN [place] History of Any Multi-Drug Resistant Organisms: None Reported Past Surgical History: Hernia Repair, Orthopedic Surgery Additional Past Surgical History / Comment(s): lt hip surgery,ing hernia repair, left elbow sx Past Anesthesia/Blood Transfusion Reactions: No Reported Reaction Additional Past Anesthesia/Blood Transfusion Reaction / Comment(s): no past blood transfusion Past Psychological History: No Psychological Hx Reported Additional Psychological History / Comment(s): 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 Smoking Status: Never smoker Past Alcohol Use History: None Reported Past Drug Use History: None Reported - Past Family History Father Family Medical History: Myocardial Infarction ([place]) Mother Family Medical History: No Reported History Medications and Allergies Home Medications Medication Instructions Recorded Confirmed Type Flecainide [Tambocor] 50 mg PO Q12H 09/05/19 09/05/19 History Metoprolol Tartrate [Lopressor] 12.5 mg PO Q48H 09/05/19 09/05/19 History Atorvastatin [Lipitor] 10 mg PO DAILY 09/06/19 09/06/19 History Allergies Allergy/AdvReac Type Severity Reaction Status Date / Time gentamicin Allergy Rash/Hives Verified 09/06/19 00:40 Penicillins Allergy Rash/Hives Verified 09/06/19 00:40 apixaban [From Eliquis] AdvReac WEAKNESS Verified 09/06/19 00:40 epinephrine AdvReac tachycardia Verified 09/06/19 00:40 sertraline [From Zoloft] AdvReac Hallucinati Verified 09/06/19 00:40 ons Physical Exam Vitals: Vital Signs Temp Pulse Pulse Resp BP BP Pulse Ox 09/06/19 03:54 97.6 F 42 L 16 122/59 98 09/05/19 23:48 97.4 F L 46 L 174/77 99 09/05/19 22:32 45 L 18 145/72 97 09/05/19 21:47 45 L 18 140/61 97 09/05/19 20:26 44 L 18 175/93 100 09/05/19 19:08 97 F L 52 L 20 155/71 99 Intake and Output 09/05/19 09/06/19 09/06/19 22:59 06:59 14:59 Other: Voiding Method Toilet Weight 61.235 kg Results 09/05/19 19:35 09/05/19 19:35 Cardiac Enzymes 09/05/19 09/05/19 Range/Units 19:35 19:35 AST 36 (17-59) U/L Troponin I <0.012 (0.000-0.034) ng/mL Coagulation 09/05/19 Range/Units 19:35 PT 10.6 (9.0-12.0) sec APTT 28.1 (22.0-30.0) sec CBC 09/05/19 Range/Units 19:35 WBC 7.5 (3.8-10.6) k/uL RBC 5.05 (4.30-5.90) m/uL Hgb 15.9 (13.0-17.5) gm/dL Hct 50.4 (39.0-53.0) % Plt Count 105 L (150-450) k/uL Comprehensive Metabolic Panel 09/05/19 Range/Units 19:35 Sodium 139 (137-145) mmol/L Potassium 5.1 (3.5-5.1) mmol/L Chloride 104 (98-107) mmol/L Carbon Dioxide 25 (22-30) mmol/L BUN 26 H (9-20) mg/dL Creatinine 1.56 H (0.66-1.25) mg/dL Glucose 88 (74-99) mg/dL Calcium 9.7 (8.4-10.2) mg/dL AST 36 (17-59) U/L ALT 21 (21-72) U/L Alkaline Phosphatase 97 (38-126) U/L Total Protein 8.0 (6.3-8.2) g/dL Albumin 4.5 (3.5-5.0) g/dL Current Medications Generic Name Dose Route Start Last Admin Trade Name Freq PRN Reason Stop Dose Admin Sodium Chloride 1,000 mls @ 80 mls/hr 09/05/19 22:00 09/06/19 01:32 Saline 0.9% IV Not Given .[id number] SHALINI Naloxone HCl 0.2 mg 09/05/19 21:46 Narcan IV Q2M PRN Opioid Reversal Intake and Output 09/05/19 09/06/19 09/06/19 22:59 06:59 14:59 Other: Voiding Method Toilet Weight 61.235 kg 09/05/19 19:35 09/05/19 19:35
[2019-09-06] MEDS: LACTATED RINGERS 1,000 ML IV SCH (11:21)
--- NOTE | 2019-09-06 14:34 | HP ---
HISTORY AND PHYSICAL DATE OF SERVICE: 09/06/2019 He is age [age] years old, white male, , date of 1930. His is FULL CODE. NEW DATA: Height 5 foot 6 inches, weight 61.235 kg., BSA 1.69 m2., BMI 21.8 kg/m2. Allergy to GENTAMICIN, PENICILLIN, APIXABAN, EPINEPHRINE, and SERTRALINE. PATIENT CHIEF COMPLAINT: Patient presented to the emergency room on 09/05/2019 at 1927 pm and seen by the PA and at that time, he had a present by history of hypertension and he came with the symptomatic throbbing of his head and at home he had blood pressure was over 200 systolic as well as he had bradycardia. 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 Augustin, the Senior Courtroom Clerk. He experience yesterday severe rushing of his brain until the brain was hotness and he checked his blood pressure, found the blood pressure 190 systolic to 200 and he got scared with the throbbing and subsequently he has his medication metoprolol metoprolol tartrate 12.5 mg once a day and he because of the blood pressure connors, he took another 25 mg of metoprolol tartrate because of that elevated hypertension. Subsequently, his heart rate has dropped to the 40 and late 30s and subsequently came to the emergency room and seen, evaluated by the PA and followed by the ER physician, and at that time, they checked him and they checked his medication and stopped his Tambocor which is Flecainide. He had taken 50 mg q.12 hours as well as he has taken metoprolol tartrate 12.5 mg every 48 hours. Subsequently with the finding of bradycardia in the ER, they stopped his medication and consultation with Dr. Augustin who did see him this morning. On reviewing of the past medical history, he had history of chronic kidney disease stage III and his baseline creatinine 1.43 with the GFR 44. He has also history of hypertension, hyperlipidemia, and Raynaud's phenomenon or disease and vitamin D deficiency. His allergy as mentioned ELIQUIS, PENICILLIN, EPINEPHRINE, ZOLOFT. SOCIAL HISTORY: He is . He has 3 daughters and he never smoked in his life. MEDICATIONS: Vitamin D3 one thousand once a day and he had Lipitor 10 mg once a day and metoprolol tartrate, he takes 12.5 mg 1/2 tablet of metoprolol tartrate 25 and he takes it every 48 hours. However, last night he took extra dose because of his blood pressure elevation. He has been taking flecainide 50 mg twice a day. PAST HISTORY: He had history of ascending thoracic aneurysm, was measured 4.3, and the arch of the aorta was 2.[address] angiogram on June 26, 2019. He has also subpleural reticulation scattered throughout the lungs bilaterally without evidence of any suspicious nodule and he has no evidence of pulmonary embolism. He has mentioned for the impression of the CT of the thoracic aorta that he has ascending thoracic 4.3 cm. And he mentioned as well in that date was done in June 26, 2019 that he had increase in size of the anterior tracheal mediastinal lymph node could be difference in the pictures. His last June laboratory was indicating that his creatinine was 1.6 and his GFR for non- 37.6 with the underlying chronic kidney disease stage III. He has been also seen in July [address] Augustin with the underlying impression that patient has episodic atrial flutter and he had benign essential hypertension, hyperlipidemia. He has intermittent claudication and history of pericarditis and history of underlying ascending aortic aneurysm at that time. Subsequently, after he was seen, he had the CT angiogram. Patient also had history of the echocardiogram which was done. The date of the echocardiogram done by Dr. Augustin on June 13, 2019 and that indicating ejection fraction of 65%, and he had mild mitral regurgitation as well as he had the aortic root was enlarged and the ascending aortic aneurysmal dilatation was present and otherwise, the trace aortic regurgitation and moderate tricuspid regurgitation and mild pulmonary regurgitation. and that was read by Dr. Augustin as well. REVIEW OF SYSTEMS SHOWED: 1. Neuropsychiatry was stable, but the family is anxious as well as him with the events. 2. Cardiovascular. He did not have any chest pain, but he fell to the rushing, flushing of his head with the checking OF the blood pressure was elevated and that caused him the anxiety with THE fear of stroke and also found that he took the pill, the bradycardia which could be associated with the beta nelia with very sensitive to the beta blockers. 3. Pulmonary. No cough. No expectoration. 4. GI. No nausea, vomiting, diarrhea, hematemesis. 5. Respiratory. No cough or expectoration or hemoptysis. 6. Endocrine. No history of diabetes mellitus or thyroid disease. 7. Genitourinary. No symptoms. 8. Musculoskeletal. Drybranch weak. Otherwise, the patient is been exercising and walking and no other available abnormalities in reviewing of the system, reviewing the 14 points. PHYSICAL EXAMINATION: The patient is conscious, alert, oriented, and this morning he is sitting up, eating his breakfast and he was seen already with the Cardiology and the PA, Tanya Mahajan and they stated in their note that if that he had sinus bradycardia and the said asymptomatic and he is on Lopressor or flecainide and hypertension and dyslipidemia. They discontinued the flecainide and the Lopressor and the initiated hydralazine 10 mg twice a day and they plan to check the thyroid and monitor telemetry and if he is stable, they plan for discharge. On the current examination, his vital sign is indicating on admission was 97.6 and orally Fahrenheit. His heart rate was ranging between 40 to 42, and respiratory rate was 16, blood pressure 122/59, and the mean blood pressure was 80. His pulse ox on room air was 98%, that is on admission; however, at the time seen was stable but still his temperature 97.6 F oral and his heart rate in the 40s and respiratory rate was 16, in spite that we have stopped the flecainide and the Lopressor. His blood pressure 132/81 with a mean 98 and pulse ox was 97%, and subsequently his blood pressure has started to hand picker. However, patient started on the hydralazine 10 mg twice a day. Cardiology and Dr. Augustin actually saw him, the teacher's aide today this morning. The dictation was by his PA. On the examination, the HEENT the head was normocephalic, atraumatic. Pupils equal, reactive. Conjunctivae were pink. Sclerae were nonicteric and oropharynx was negative and able to the eat. The neck was supple. No JVD. No thyromegaly. No lymphadenopathy. Trachea midline. The chest was clear to auscultation and percussion. Heart was regular sinus rhythm with bradycardia and the abdomen was soft. Positive bowel sounds. Nontender. Extremities no edema and positive pulses. Neurologically stable and able to ambulate and no lateralizing sign. ASSESSMENT: 1. Episodic hypertension with acceleration. 2. Underlying anxiety, which patient already had Valium at home and he took a Valium because of the anxiety. 3. Bradycardia was very sensitivity to beta nelia as well as flecainide. He had history of arrhythmia in the past, which is not present at this time with the latter, and his echocardiogram as mentioned was stable in June. The underlying sick sinus syndrome and hypertension uncontrolled and anxiety disorder added to hyperlipidemia and vitamin D insufficiency. PLAN: Patient already has been held his medication and we continue holding it and the patient started on hydralazine and we will continue monitoring the patient today and see if hydralazine has any effect on his heart rate or the blood pressure and subsequently further investigation. If patient continues to have the bradycardia, he may need a pacemaker and that will be decided by the teacher's aide, Dr. Augustin, as well as we will be monitoring his blood pressure and apparently the hydralazine dose 10 mg twice a day. Probably, patient may need more than 10 mg twice a day. However, we will be waiting for the end of the day to see if any improvement and if the patient improved, will discharge him home. However, if he has continued to have the problem, probably he will be staying and further discussion regarding the pacemaker will be considered if is needed. Patient had in the ER a CT scan by the ER physician, and with the indicating cerebral atrophy, no acute evidence of intracranial abdomen. MMODL / IJN: [id number] /
--- NOTE | 2019-09-06 19:13 | P.PN ---
Progress Note - Text Progress Note Date: 09/06/19 This is follow-up on 09/06/2019 at 7:08 PM Patient seen and evaluated still his heart rate in the 40s in the supine position. Patient to receive hydralazine 1 tablet only 10 mg, his blood pressure is stable 117 systolic. I did put a parameter on the hydralazine to be withheld if the blood pressure 120 systolic. Patient has chronic kidney disease stage III and we will be maintaining perfusion to the renal. Patient heart rate still in the 40 bradycardia, patient off beta blockers and flecainide. His blood pressure has been controlled. IV fluid started for hydration with the underlying elevated BUN and creatinine with the underlying history of chronic kidney disease stage III and very gentle hydration 50 mL an hour dictated ringer. Patient will stay 1 day more and further evaluation tomorrow for the bradycardia and the blood pressure and BUN and creatinine will be checked again tomorrow. The patient continue bradycardia, consideration of pacemaker may be need to be discussed. We obtain BMP in a.m.
[2019-09-06 19:29] VITALS: RESP 18
[2019-09-06 23:10] VITALS: TEMP 97.6
[2019-09-07 06:07] LABS: Calcium 9.2 mg/dL (8.4-10.2); Potassium 4.5 mmol/L (3.5-5.1)
[2019-09-07 07:16] VITALS: BP 115/68; PULSE 51
[2019-09-07] MEDS: LACTATED RINGERS 1,000 ML IV SCH (07:29)
[2019-09-07] MEDS: hydrALAZINE HCL 10 MG TAB PO SCH (08:18)
--- NOTE | 2019-09-07 08:22 | P.PN ---
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 He was found to be bradycardic. He was taken off beta nelia and flecainide. Patient was initiated on hydralazine 10 mg by mouth twice a day. His blood pressure has been fluctuating but this morning is about 110/70. His heart rate is about 50 and above. Patient could be discharged home on hydralazine 10 mg by mouth twice a day. Follow-up in the office in one week Objective - Vital Signs Vital signs: Vital Signs Temp 97.6 F 09/07/19 07:00 Pulse 51 L 09/07/19 07:00 Resp 18 09/07/19 07:00 BP 115/68 09/07/19 07:00 Pulse Ox 97 09/07/19 07:00 Intake & Output 09/06/19 09/07/19 09/07/19 18:59 06:59 18:59 Intake Total 150 240 Balance 150 240 Intake: Intake, IV Titration 150 Amount Lactated Ringers 1,000 ml 150 @ 50 mls/hr IV .Q20H SHALINI Rx#:[id number] Oral 240 Other: Voiding Method Toilet Toilet # Voids 2 1 - Exam GENERAL EXAM: Patient is alert and oriented and doesn't appear to be in any acute distress HEENT: Normocephalic. Normal reaction of pupils, equal size, normal range of extraocular motion. No erythema or exudates in the throat. NECK: No masses, no nuchal rigidity. CHEST: No chest wall deformity. LUNGS: Equal air entry with no crackles or wheeze. HEART: S1 and S2 normal with no audible mumurs or gallops. Regular rhythm, femorals equal on both sides.. ABDOMEN: No hepatosplenomegaly, normal bowel sounds, no guarding or rigidity. SKIN: No rashes CENTRAL NERVOUS SYSTEM: No focal deficits. EXTREMITIES: No cyanosis, clubbing or edema. - Labs CBC & Chem 7: 09/05/19 19:35 09/07/19 05:39 Labs: Abnormal Lab Results - Last 24 Hours (Table) 09/07/19 Range/Units 05:39 BUN 28 H (9-20) mg/dL Creatinine 1.48 H (0.66-1.25) mg/dL Assessment and Plan (1) Essential hypertension Current Visit: Yes Status: Acute Code(s): I10 - ESSENTIAL (PRIMARY) HYPERTENSION SNOMED Code(s): 86645698 (2) Bradycardia Current Visit: Yes Status: Acute Code(s): R00.1 - BRADYCARDIA, UNSPECIFIED SNOMED Code(s): 48379608 Plan: Bradycardia has improved. Blood pressure is better controlled. Patient could b e discharged home. Follow-up in the office in one week
[2019-09-07] MEDS ORDERED: ATORVASTATIN 10 MG TAB PO SCH (09:00)
--- NOTE | 2019-09-07 11:53 | P.PN ---
Progress Note - Text Progress Note Date: 09/07/19 Discharge summary date of service 09/07/2019. Patient discharged from observation status. Final diagnoses: Acute hypertensive episode currently stable blood pressure. Beta nelia sensitivity with severe bradycardia in association with medications flecainide. Has been discontinued. Hyperlipidemia. Cardiac arrhythmia stable Dehydration with the elevated the BUN and creatinine from the baseline. 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 He has been always blood pressure around 150 and he has in the past prescribed to him by Dr. Peng shellfish dredge operator the flecainide and metoprolol. Added to his symptoms that his bradycardia was severe between 30 and 40 and that was due to the metoprolol as he took extra pill to control his blood pressure METOPROLOL tartrate 12.5. Patient his doses at home 12.5 every 48-hour Hospital course: Patient admitted to observation status and seen by cardiology Dr. Peng, also his medication has been was held and stopped for the beta nelia metoprolol tartrate as well as flecainide. Patient monitored and the started on hydralazine by Dr. Peng shellfish dredge operator and subsequent monitoring as well as parameter added as blood pressure has been gradually improved to less than 120. His earlier blood pressure was 175/93. He had no other symptoms no chest pain no nausea no vomiting no diarrhea no abdominal pain no history of upper respiratory tract infection or viral infectio n. His BUN/creatinine was mildly elevated and subsequently ringer lactate IV fluid gentle hydration with with 50 mL an hour has been started and his BUN and creatinine returned back to the baseline this morning and patient was stable and his pulse rate improved to the 50s seen by the cardiology and decided to be discharged home to follow-up with the cardiology in 1 week. [id number] exam: The head was normocephalic and atraumatic pupils equal reactive conjunctiva was pink sclera was nonicteric oropharynx was negative Vital sign was stable with temperature 97.6 F oral and heart rate 51/m res piratory rate 18 blood pressure 115/68 with a mean blood pressure 83 and the pulse ox 97%. Neck was supple no JVD no thyromegaly no lymphadenopathy trachea midline. Chest was clear for auscultation percussion. Heart regular sinus rhythm no dysrhythmia. Abdomen soft positive bowel sounds no tenderness in 4 quadrants. Extremities no edema and positive pulses. Neurologically: No drug no nausea vomiting conscious alert no lateralizing sign moving 4 extremities normal ambulation no tremor able to eat and swallow no cranial nerve deficit. Assessment: Patient stable general condition for discharge and follow-up next week with Dr. Scott as well as follow-up in one to [address] Peng shellfish dredge operator. Plan: Hydralazine prescription given to the patient was parameter to be withheld and blood pressure below 120 systolic. We'll see him in the office next week
== END 2019-09-07 11:52 | disposition home or self-care (01) ==
LOC: EC 18:59 → 1SOBS 22:08
PROVIDERS: ADMIT Internal Medicine; ATTEND Internal Medicine
DX: I12.9 Hypertensive chronic kidney disease with stage 1 through stage 4 chronic kidney disease, or unspecified chronic kidney disease (principal); N18.3 Chronic kidney disease, stage 3 (moderate); T44.7X5A Adverse effect of beta-adrenoreceptor antagonists, initial encounter; R00.1 Bradycardia, unspecified; E86.0 Dehydration; I49.5 Sick sinus syndrome; F41.9 Anxiety disorder, unspecified; E78.5 Hyperlipidemia, unspecified; I73.00 Raynaud's syndrome without gangrene; E55.9 Vitamin D deficiency, unspecified; I71.2 Thoracic aortic aneurysm, without rupture; I48.91 Unspecified atrial fibrillation; I48.92 Unspecified atrial flutter; Z79.899 Other long term (current) drug therapy; Z88.8 Allergy status to other drugs, medicaments and biological substances; Z88.0 Allergy status to penicillin; Z88.1 Allergy status to other antibiotic agents; Z86.13 Personal history of malaria; Z82.49 Family history of ischemic heart disease and other diseases of the circulatory system
CPT/HCPCS: 93005 ×3; 99283; 99285; 36415; 80053; 80048; 84443; 83735; 84484; 85025; 85610; 85730; 81003; 70450; G0378 ×3

== ENCOUNTER 2019-09-07 14:45 | Emergency (ER) | payer MEDICARE, BC ==
[2019-09-07 14:59] VITALS: TEMP 97.6
[2019-09-07 16:32] VITALS: BP 138/96; PULSE 60; RESP 12
--- NOTE | 2019-09-07 16:45 | ED ---
General Adult HPI - General Chief complaint: Recheck/Abnormal Lab/Rx Stated complaint: Hypertensive Time Seen by Provider: 09/07/19 14:55 Source: patient Mode of arrival: wheelchair Limitations: no limitations - History of Present Illness Initial comments: The patient is an 89-year-old male with past history of atrial fibrillation and hypertension who presents to the emergency room with elevated blood pressures at home. The patient was recently hospitalized for several days. He does have hard to control blood pressures. He was also notably bradycardic during his hospital stay. He reports that he saw the hospitalist. He was taken off of his flecainide and metoprolol. They switched him to hydralazine for his blood pressure control. He is also on Valium as he does have a large history of anxiety. He was discharged from the hospital today with the plan to take hydralazine every time his blood pressure was over 120. States that when he got home he felt a little bit off balance. Because of this he did take his blood pressure. Reported that his home blood pressure cuff read 300/160. Because of this he did take his hydralazine and a Valium. He then presented to the emergency room for further evaluation. Patient presents with a blood pressure in the 150s systolic. He reports that he is asymptomatic at this time. He denies any chest pain or shortness of breath. No visual changes. Denies any headaches. There are no other alleviating, precipitating or modifying factors - Related Data Home Medications Medication Instructions Recorded Confirmed Atorvastatin [Lipitor] 10 mg PO DAILY 09/06/19 09/07/19 Diazepam [Valium] 5 mg PO DAILY PRN 09/07/19 09/07/19 Previous Rx's Medication Instructions Recorded hydrALAZINE HCL [Apresoline] 10 mg PO BID #60 tab 09/07/19 Allergies Allergy/AdvReac Type Severity Reaction Status Date / Time gentamicin Allergy Rash/Hives Verified 09/07/19 15:50 Penicillins Allergy Rash/Hives Verified 09/07/19 15:50 apixaban [From Eliquis] AdvReac WEAKNESS Verified 09/07/19 15:50 epinephrine AdvReac tachycardia Verified 09/07/19 15:50 sertraline [From Zoloft] AdvReac Hallucinati Verified 09/07/19 15:50 ons Review of Systems ROS Statement: Those systems with pertinent positive or pertinent negative responses have been documented in the HPI. ROS Other: All systems not noted in ROS Statement are negative. Past Medical History Past Medical History: Atrial Fibrillation, Hypertension Additional Past Medical History / Comment(s): MALARIA WHEN IN [place] History of Any Multi-Drug Resistant Organisms: None Reported Past Surgical History: Hernia Repair, Orthopedic Surgery Additional Past Surgical History / Comment(s): lt hip surgery,ing hernia repair, left elbow sx Past Anesthesia/Blood Transfusion Reactions: No Reported Reaction Additional Past Anesthesia/Blood Transfusion Reaction / Comment(s): no past blood transfusion Past Psychological History: No Psychological Hx Reported Smoking Status: Never smoker Past Alcohol Use History: None Reported Past Drug Use History: None Reported - Past Family History Father Family Medical History: Myocardial Infarction ([place]) Mother Family Medical History: No Reported History General Exam Limitations: no limitations Course Vital Signs 09/07/19 09/07/19 09/07/19 14:53 15:21 15:30 Temperature 97.6 F Pulse Rate 65 63 59 L Respiratory 18 11 L 18 Rate Blood Pressure 151/81 178/95 O2 Sat by Pulse 98 99 99 Oximetry 09/07/19 09/07/19 09/07/19 15:40 15:50 16:00 Temperature Pulse Rate 63 63 58 L Respiratory 9 L 18 11 L Rate Blood Pressure 158/87 163/90 163/90 O2 Sat by Pulse 97 100 100 Oximetry 09/07/19 09/07/19 09/07/19 16:10 16:20 16:30 Temperature Pulse Rate 60 60 Respiratory 22 12 Rate Blood Pressure 138/96 138/96 138/96 O2 Sat by Pulse 99 99 Oximetry 09/07/19 16:59 Temperature 97.6 F Pulse Rate 60 Respiratory 12 Rate Blood Pressure 138/96 O2 Sat by Pulse 99 Oximetry EKG Findings - EKG Comments: EKG Findings:: EKG demonstrates a normal sinus rhythm with a ventricular rate of 61. NV interval 96. QRS 92. QTC 438. No acute ST segment elevations. There is an inverted T-wave in lead 3. Medical Decision Making - Medical Decision Making Upon arrival the patient is placed in room 1. A thorough history and physical exam was performed. Patient does have repeat blood pressures performed here. Blood pressure upon arrival is 151/81. We to take multiple blood pressure measurements. They are measured between 150s and 160s systolic. Last blood pressure is 138 systolic. I do completed 12-lead EKG on the patient. I do have the patient's take his blood pressure with their home cough. It is notably 20-30 mmHg higher on their cuff even with troubleshooting. I called and discussed the case with the patient's primary care physician. He is is satisfied with the patient's blood pressures at this time. He does not believe that he should change his regimen. He instructed that he should not use that cough did take his blood pressures. He should use a new blood pressure cough which is to be delivered to their house tomorrow. He is a follow-up appointment this week. The patient is satisfied with this treatment plan. If he has any new or worsening symptoms she should come back to the emergency room. Patient was then discharged home in stable condition Disposition Clinical Impression: Essential hypertension Disposition: HOME SELF-CARE Condition: Stable Instructions (If sedation given, give patient instructions): Hypertension (ED) Additional Instructions: Please follow-up with the primary care doctor next week for reevaluation of your high blood pressures. Return to the emergency room for any new or worsening symptoms Is patient prescribed a controlled substance at d/c from ED?: No Referrals: Leon Scott MD [Primary Care Provider] - 1-2 days Time of Disposition: 16:45
== END 2019-09-07 16:59 | disposition home or self-care (01) ==
LOC: EC 14:45
DX: I10 Essential (primary) hypertension (principal); R05 Cough; I48.91 Unspecified atrial fibrillation; F41.9 Anxiety disorder, unspecified; Z79.899 Other long term (current) drug therapy; Z88.8 Allergy status to other drugs, medicaments and biological substances; Z88.1 Allergy status to other antibiotic agents; Z88.0 Allergy status to penicillin; Z82.49 Family history of ischemic heart disease and other diseases of the circulatory system
CPT/HCPCS: 93005; 99283